=== PATIENT | male | born 1965 | race Caucasian/White ===

== ENCOUNTER 2021-01-08 17:22 | Inpatient (IN) ==
[2021-01-08] MEDS ORDERED: Pantoprazole 40 MG VIAL IVP ONE (17:29)
[2021-01-08 18:06] LABS: Basophils # 0.1 K/mcL (0.0-0.2); Basophils % 0.9 %; Eosinophils # 0.2 K/mcL (0.0-0.6); Eosinophils % 1.5 %; Hematocrit 21.1 % (37.5-50.1); Hemoglobin 7.1 g/dL (12.9-16.9); Immature Granulocytes % 0.4 % (0-4); Lymphocytes # 1.7 K/mcL (0.6-4.6); Lymphocytes % 16.9 %; Mean Corpuscular HGB Conc 33.6 g/dL (31.6-35.5); Mean Corpuscular Hemoglobin 34.6 pg (28.0-33.3); Mean Corpuscular Volume 102.9 fL (83.0-100.0); Monocytes # 0.8 K/mcL (0.0-1.3); Monocytes % 7.9 %; Neutrophils # 7.2 K/mcL (1.6-8.9); Platelet Count 162 K/mcL (140-400); Red Blood Count 2.05 M/mcL (4.19-5.50); Red Cell Distribution Width 15.1 % (11.5-14.5); Segmented Neutrophils % 72.4 %
[2021-01-08 18:15] LABS: Alanine Aminotransferase 16 Units/L (7-52); Albumin 2.5 g/dL (3.5-5.7); Albumin/Globulin Ratio 0.6 (1.1-2.2); Alkaline Phosphatase 156 Units/L (34-104); Aspartate Amino Transferase 79 Units/L (13-39); BUN/Creatinine Ratio 15 (6-26); Bilirubin,Total 2.9 mg/dL (0.3-1.0); Blood Urea Nitrogen 30 mg/dL (6-20); Calcium 8.3 mg/dL (8.6-10.3); Carbon Dioxide 19 mEq/L (23-29); Chloride 97 mEq/L (98-107); Glucose 157 mg/dL (70-105); Lipase 91 Units/L (11-82); Osmolality,Calculated 269 (280-300); Potassium 4.5 mEq/L (3.5-5.1); Sodium 125 mEq/L (136-145); Total Protein 6.5 g/dL (6.4-8.9); Troponin I < 0.03 ng/mL (< 0.04); eGFR For African Americans 44 (> 60); eGFR For Non-African Americans 36 (> 60)
[2021-01-08 18:17] LABS: Activated Partial Thrombo Time 31.3 Seconds (26.0-36.0); INR 1.4; Prothrombin Time 16.1 Seconds (9.4-12.1)
[2021-01-08 21:31] LABS: Ethanol 49 mg/dL (Less than 10)
[2021-01-08] MEDS ORDERED: Naloxone 0.4 MG/ML INJ IVP PRN (22:32)
[2021-01-08] MEDS ORDERED: Ondansetron 4 MG/2 ML VIAL IVP PRN ×2 (22:38→23:29)
[2021-01-08] MEDS ORDERED: *HR* LORazepam 0.5 MG TABLET PO PRN (23:15)
[2021-01-08] MEDS ORDERED: *HR* LORazepam 2 MG/ML VIAL IVP PRN ×3 (23:24)
[2021-01-08] MEDS ORDERED: 0.9 % Sodium Chloride 250 ML ONE (23:26)
[2021-01-08] MEDS ORDERED: tiZANidine 4 MG TABLET PO ONE (23:48)
[2021-01-09] MEDS: cefTRIAXone 1,000 MG in Water for inj. (sterile) 10 ML IVP SCH ×2 (00:12→22:33)
[2021-01-09] MEDS: Thiamine (B-1) 200 MG in 0.9 % Sodium Chloride 50 ML IVPB SCH ×2 (00:48→14:13)
[2021-01-09 01:36] LABS: Sodium, Urine 51.2 mEq/L
[2021-01-09 01:42] LABS: Amphetamine Screen,Urine Negative ng/mL (Cutoff=1000); Barbiturate Screen,Urine Negative ng/mL (Cutoff=200); Benzodiazepines Screen,Urine Negative ng/mL (Cutoff=200); Cannabinoid Screen,Urine Positive ng/mL (Cutoff = 50); Cocaine Screen,Urine Negative ng/mL (Cutoff= 300); Opiate Screen,Urine Negative ng/mL (Cutoff=300); Phencyclidine Screen,Urine Negative ng/mL (Cutoff=25)
[2021-01-09] MEDS: Pantoprazole 40 MG in 0.9 % Sodium Chloride Mini Bag 100 ML IVC SCH ×5 (01:56→20:38)
[2021-01-09 02:07] LABS: Bilirubin,Urine Negative (Negative); Blood,Urine Negative (Negative); Clarity,Urine Clear (Clear); Color,Urine Yellow (Yellow); Glucose,Urine (UA) 70 mg/dL (Normal); Ketones,Urine Negative (Negative); Leukocyte Esterase,Urine Negative (Negative); Nitrite,Urine Negative (Negative); PH,Urine 6.5 pH Units (5.0-8.0); Protein,Urine Trace mg/dL (Neg-Trace); RBC,Urine 0-3 per hpf (0-3); Specific Gravity,Urine 1.014 (1.010-1.025); Urobilinogen,Urine Normal (Normal); WBC,Urine 0-3 per hpf (0-3)
[2021-01-09] MEDS ORDERED: *HR* Promethazine 25 MG/ML VIAL IM PRN (02:13)
[2021-01-09] MEDS: Albumin 25% 25gram/100mL 25 GM/100 ML IV.SOLN IVC SCH ×2 (03:35→05:18)
[2021-01-09 06:15] LABS: Total Protein,Peritoneal Fluid 2.7 g/dL
[2021-01-09 06:37] LABS: Appearance of Peritoneal Fl HAZY (Clear)
[2021-01-09 06:38] LABS: RBC,Peritoneal Fluid < 2000 RBC/mcL
[2021-01-09] MEDS ORDERED: 0.9 % Sodium Chloride 500 ML IVC ONE (06:44)
[2021-01-09] MEDS ORDERED: Albumin 25% 25gram/100mL 25 GM/100 ML IV.SOLN IVPB ONE (06:44)
[2021-01-09] MEDS ORDERED: 0.9 % Sodium Chloride 500 ML ONE (06:48)
[2021-01-09 07:32] LABS: Basophils,Peritoneal Fluid 0 %; Eosinophils,Peritoneal Fluid 0 %
[2021-01-09 07:38] LABS: INR 1.5; Prothrombin Time 17.1 Seconds (9.4-12.1)
[2021-01-09] MEDS: Albumin 25% 25gram/100mL 25 GM/100 ML IV.SOLN IVPB SCH ×4 (07:41→13:03)
[2021-01-09 07:45] LABS: Albumin 2.7 g/dL (3.5-5.7); Albumin/Globulin Ratio 0.8 (1.1-2.2); Bilirubin,Total 2.9 mg/dL (0.3-1.0); Calcium 8.3 mg/dL (8.6-10.3); Globulin 3.3 g/dL (2.4-3.5); Potassium 4.4 mEq/L (3.5-5.1)
[2021-01-09 07:47] LABS: Bilirubin,Direct 1.3 mg/dL (0.0-0.2); Bilirubin,Indirect 1.6 mg/dL (0.0-1.0); Bilirubin,Total 2.9 mg/dL (0.3-1.0)
[2021-01-09] MEDS: Octreotide 400 MCG in 0.9 % Sodium Chloride 100 ML IVC SCH ×3 (07:50→22:33)
[2021-01-09 09:10] LABS: Basophils % 0.6 %; Eosinophils % 0.4 %; Hematocrit 17.9 % (37.5-50.1); Immature Granulocytes % 0.6 % (0-4); Immature Platelets 6.3 % (1.1-6.1); Lymphocytes # 1.3 K/mcL (0.6-4.6); Lymphocytes % 19.6 %; Mean Corpuscular HGB Conc 33.5 g/dL (31.6-35.5); Mean Corpuscular Hemoglobin 34.1 pg (28.0-33.3); Mean Corpuscular Volume 101.7 fL (83.0-100.0); Mean Platelet Volume 11.3 fL (9.4-12.4); Monocytes # 0.9 K/mcL (0.0-1.3); Monocytes % 13.3 %; Red Blood Count 1.76 M/mcL (4.19-5.50); Red Cell Distribution Width 16.1 % (11.5-14.5); Segmented Neutrophils % 65.5 %; White Blood Count 6.8 K/mcL (4.3-11.1)
[2021-01-09 09:45] LABS: Neutrophils # 4.5 K/mcL (1.6-8.9); Platelet Count 85 K/mcL (140-400)
[2021-01-09] MEDS ORDERED: Metoclopramide 10 MG/2 ML VIAL IVP ONE (11:22)
[2021-01-09] MEDS ORDERED: 0.9 % Sodium Chloride 250 ML ONE (11:23)
[2021-01-09] MEDS ORDERED: *HR* Propofol 200 MG/20 ML VIAL IVP ONE ×2 (11:39→12:20)
[2021-01-09] MEDS ORDERED: Lidocaine -MPF 2% 2 ML VIAL ONE (11:40)
[2021-01-09] MEDS ORDERED: EPINEPHrine 1 MG/ML VIAL IM ONE (12:24)
[2021-01-09] MEDS ORDERED: *HR* EPINEPHrine 1 MG/10 ML SYRINGE ONE (12:54)
[2021-01-09 14:57] LABS: Hematocrit 21.4 % (37.5-50.1); Hemoglobin 7.3 g/dL (12.9-16.9)
[2021-01-09] MEDS: Folic Acid 1 MG TABLET PO SCH (15:19)
[2021-01-09] MEDS: Vitamin B Complex/Vit C/Vit E 1 EACH TABLET PO SCH (15:19)
[2021-01-09] MEDS ORDERED: SODIUM CHLORIDE/NAHCO3/KCL/PEG 4,000 ML SOLN.RECON PO ONE (17:00)
[2021-01-09 17:05] LABS: Hematocrit 22.1 % (37.5-50.1); Hemoglobin 7.7 g/dL (12.9-16.9)
[2021-01-09] MEDS ORDERED: 0.9 % Sodium Chloride 1,000 ML IVC SCH (18:30)
[2021-01-09 21:25] LABS: Hematocrit 21.6 % (37.5-50.1); Hemoglobin 7.4 g/dL (12.9-16.9)
[2021-01-10 01:51] LABS: Hemoglobin 7.3 g/dL (12.9-16.9)
[2021-01-10 01:53] LABS: Hematocrit 20.9 % (37.5-50.1)
[2021-01-10] MEDS: Pantoprazole 40 MG in 0.9 % Sodium Chloride Mini Bag 100 ML IVC SCH ×2 (01:54→06:00)
[2021-01-10 05:52] LABS: Hemoglobin 7.5 g/dL (12.9-16.9)
[2021-01-10 05:53] LABS: Hematocrit 21.8 % (37.5-50.1); Immature Platelets 7.3 % (1.1-6.1); Mean Corpuscular HGB Conc 34.4 g/dL (31.6-35.5); Mean Platelet Volume 11.7 fL (9.4-12.4); Red Blood Count 2.27 M/mcL (4.19-5.50); Red Cell Distribution Width 16.9 % (11.5-14.5); White Blood Count 8.7 K/mcL (4.3-11.1)
[2021-01-10 05:58] LABS: Calcium 8.4 mg/dL (8.6-10.3); Potassium 4.8 mEq/L (3.5-5.1)
[2021-01-10] MEDS: Octreotide 400 MCG in 0.9 % Sodium Chloride 100 ML IVC SCH ×3 (05:59→16:34)
[2021-01-10] MEDS: Vitamin B Complex/Vit C/Vit E 1 EACH TABLET PO SCH (07:40)
[2021-01-10] MEDS: Folic Acid 1 MG TABLET PO SCH (07:40)
[2021-01-10] MEDS: Pantoprazole 40 MG VIAL IVP SCH ×2 (10:16→16:35)
[2021-01-10] MEDS: Thiamine (B-1) 200 MG in 0.9 % Sodium Chloride 50 ML IVPB SCH (10:17)
[2021-01-10] MEDS ORDERED: *HR* LORazepam 1 MG TABLET PO PRN (12:01)
[2021-01-10 12:52] LABS: Hematocrit 21.4 % (37.5-50.1); Hemoglobin 7.5 g/dL (12.9-16.9)
[2021-01-10 14:27] LABS: Hemoglobin 7.2 g/dL (12.9-16.9)
[2021-01-10 14:29] LABS: Basophils # 0.1 K/mcL (0.0-0.2); Basophils % 0.7 %; Eosinophils # 0.3 K/mcL (0.0-0.6); Eosinophils % 3.1 %; Hematocrit 20.6 % (37.5-50.1); Immature Granulocytes % 0.3 % (0-4); Immature Platelets 5.9 % (1.1-6.1); Lymphocytes # 1.6 K/mcL (0.6-4.6); Lymphocytes % 17.1 %; Mean Corpuscular Volume 97.2 fL (83.0-100.0); Mean Platelet Volume 11.3 fL (9.4-12.4); Monocytes # 0.9 K/mcL (0.0-1.3); Monocytes % 9.8 %; Neutrophils # 6.6 K/mcL (1.6-8.9); Platelet Count 107 K/mcL (140-400); Red Blood Count 2.12 M/mcL (4.19-5.50); Red Cell Distribution Width 17.3 % (11.5-14.5); White Blood Count 9.6 K/mcL (4.3-11.1)
[2021-01-10] MEDS ORDERED: *HR* Succinylcholine 200 MG/10 ML VIAL IVP ONE (14:48)
[2021-01-10] MEDS ORDERED: Lidocaine -MPF 2% 5 ML VIAL ONE (14:48)
[2021-01-10] MEDS: *HR* Phytonadione 5 MG TABLET PO SCH (17:54)
[2021-01-10] MEDS: cefTRIAXone 1,000 MG in Water for inj. (sterile) 10 ML IVP SCH (23:36)
[2021-01-11] MEDS: Octreotide 400 MCG in 0.9 % Sodium Chloride 100 ML IVC SCH ×3 (01:15→21:15)
[2021-01-11 02:25] LABS: Eosinophils % 3.4 %; Red Blood Count 1.74 M/mcL (4.19-5.50)
[2021-01-11 02:27] LABS: Basophils # 0.1 K/mcL (0.0-0.2); Basophils % 0.6 %; Eosinophils # 0.3 K/mcL (0.0-0.6); Hematocrit 17.1 % (37.5-50.1); Immature Granulocytes % 0.2 % (0-4); Immature Platelets 5.5 % (1.1-6.1); Lymphocytes # 1.9 K/mcL (0.6-4.6); Lymphocytes % 22.1 %; Mean Corpuscular HGB Conc 34.5 g/dL (31.6-35.5); Mean Corpuscular Hemoglobin 33.9 pg (28.0-33.3); Mean Corpuscular Volume 98.3 fL (83.0-100.0); Mean Platelet Volume 10.7 fL (9.4-12.4); Monocytes % 10.8 %; Neutrophils # 5.5 K/mcL (1.6-8.9); Red Cell Distribution Width 17.2 % (11.5-14.5); Segmented Neutrophils % 62.9 %; White Blood Count 8.8 K/mcL (4.3-11.1)
[2021-01-11 02:28] LABS: Platelet Count 96 K/mcL (140-400)
[2021-01-11 02:30] LABS: Hemoglobin 5.9 g/dL (12.9-16.9)
[2021-01-11] MEDS ORDERED: 0.9 % Sodium Chloride 250 ML ONE ×2 (02:38→07:51)
[2021-01-11 02:42] LABS: BUN/Creatinine Ratio 15 (6-26); Blood Urea Nitrogen 22 mg/dL (6-20); Calcium 7.9 mg/dL (8.6-10.3); Carbon Dioxide 21 mEq/L (23-29); Chloride 104 mEq/L (98-107); Glucose 116 mg/dL (70-105); Magnesium 1.2 mg/dL (1.6-2.6); Osmolality,Calculated 278 (280-300); Phosphorous 2.2 mg/dL (2.7-4.5); Potassium 3.9 mEq/L (3.5-5.1); Sodium 132 mEq/L (136-145); eGFR For African Americans > 60 (> 60); eGFR For Non-African Americans 51 (> 60)
[2021-01-11] MEDS: Pantoprazole 40 MG VIAL IVP SCH ×2 (06:43→18:25)
[2021-01-11] MEDS: Vitamin B Complex/Vit C/Vit E 1 EACH TABLET PO SCH (08:10)
[2021-01-11] MEDS: Folic Acid 1 MG TABLET PO SCH (08:10)
[2021-01-11] MEDS: *HR* Phytonadione 5 MG TABLET PO SCH (08:11)
[2021-01-11] MEDS ORDERED: *HR* LORazepam 2 MG/ML VIAL ONE (08:31)
[2021-01-11] MEDS ORDERED: *HR* LORazepam 2 MG/ML VIAL IVP ONE (08:39)
[2021-01-11] MEDS ORDERED: levETIRAcetam 1,000 MG in 0.9 % Sodium Chloride 100 ML IVPB ONE (08:40)
[2021-01-11] MEDS: Albumin 25% 25gram/100mL 25 GM/100 ML IV.SOLN IVC SCH ×4 (09:10→14:16)
[2021-01-11] MEDS ORDERED: Lidocaine -MPF 1% 5 ML AMPUL INFILT ONE (09:26)
[2021-01-11] MEDS ORDERED: 0.9 % Sodium Chloride 1,000 ML IVC ONE (09:44)
[2021-01-11] MEDS ORDERED: 0.9 % Sodium Chloride 500 ML ONE ×2 (09:47→20:37)
[2021-01-11] MEDS ORDERED: 0.9 % Sodium Chloride 500 ML IVC STA (09:50)
[2021-01-11] MEDS: Norepinephrine 4 MG/254 ML IV.SOLN IVC SCH (10:30)
[2021-01-11 11:41] LABS: ABG Base Excess -4 mEq/L (-2 to 3); ABG HCO3 20 mEq/L (21-27); ABG Oxygen Saturation 94 % (95-98); ABG PCO2 30 mmHg (35-45); ABG PH 7.43 pH Units (7.32-7.45); ABG PO2 66 mmHg (85-104); ABG TCO2 21 mEq/L (20-26)
[2021-01-11] MEDS: *HR* LORazepam 2 MG/ML VIAL IVP SCH ×2 (14:19→22:43)
[2021-01-11 17:07] LABS: Hematocrit 20.2 % (37.5-50.1); Hemoglobin 6.9 g/dL (12.9-16.9)
[2021-01-11 17:14] LABS: INR 1.8
[2021-01-11 17:17] LABS: Activated Partial Thrombo Time 34.9 Seconds (26.0-36.0)
[2021-01-11] MEDS: cefTRIAXone 1,000 MG in Water for inj. (sterile) 10 ML IVP SCH (22:43)
[2021-01-12 03:57] LABS: Basophils % 0.7 %; Hemoglobin 7.6 g/dL (12.9-16.9); Mean Platelet Volume 10.9 fL (9.4-12.4)
[2021-01-12 03:59] LABS: Basophils # 0.1 K/mcL (0.0-0.2); Eosinophils # 0.2 K/mcL (0.0-0.6); Eosinophils % 2.9 %; Hematocrit 22.4 % (37.5-50.1); Immature Granulocytes % 0.6 % (0-4); Immature Platelets 5.2 % (1.1-6.1); Lymphocytes # 1.5 K/mcL (0.6-4.6); Lymphocytes % 21.3 %; Mean Corpuscular HGB Conc 33.9 g/dL (31.6-35.5); Mean Corpuscular Hemoglobin 31.4 pg (28.0-33.3); Mean Corpuscular Volume 92.6 fL (83.0-100.0); Monocytes # 0.7 K/mcL (0.0-1.3); Monocytes % 10.3 %; Neutrophils # 4.5 K/mcL (1.6-8.9); Red Blood Count 2.42 M/mcL (4.19-5.50); Red Cell Distribution Width 18.5 % (11.5-14.5); Segmented Neutrophils % 64.2 %
[2021-01-12 04:00] LABS: Platelet Count 72 K/mcL (140-400)
[2021-01-12 04:15] LABS: BUN/Creatinine Ratio 14 (6-26); Blood Urea Nitrogen 15 mg/dL (6-20); Calcium 8.1 mg/dL (8.6-10.3); Carbon Dioxide 20 mEq/L (23-29); Chloride 107 mEq/L (98-107); Glucose 109 mg/dL (70-105); Magnesium 1.8 mg/dL (1.6-2.6); Osmolality,Calculated 281 (280-300); Phosphorous 2.5 mg/dL (2.7-4.5); Potassium 3.5 mEq/L (3.5-5.1); Sodium 135 mEq/L (136-145); eGFR For African Americans > 60 (> 60); eGFR For Non-African Americans > 60 (> 60)
[2021-01-12] MEDS ORDERED: Potassium Chloride 40 MEQ/200 ML BAG IVPB PRN ×2 (04:22→22:19)
[2021-01-12] MEDS ORDERED: Calcium Gluconate 1gm/50mL 1 GM/50 ML BAG IVPB PRN ×2 (04:22→22:19)
[2021-01-12] MEDS ORDERED: Potassium Phosphate 44 MEQ in 0.9 % Sodium Chloride 250 ML IVPB PRN ×2 (04:27→22:19)
[2021-01-12] MEDS: Pantoprazole 40 MG VIAL IVP SCH ×2 (05:06→17:54)
[2021-01-12] MEDS: Octreotide 400 MCG in 0.9 % Sodium Chloride 100 ML IVC SCH ×3 (05:07→23:13)
[2021-01-12] MEDS: *HR* LORazepam 2 MG/ML VIAL IVP SCH ×3 (07:47→23:12)
[2021-01-12] MEDS: *HR* Phytonadione 5 MG TABLET PO SCH (07:47)
[2021-01-12] MEDS: Folic Acid 1 MG TABLET PO SCH (07:47)
[2021-01-12] MEDS: Vitamin B Complex/Vit C/Vit E 1 EACH TABLET PO SCH (07:47)
[2021-01-12] MEDS ORDERED: *HR* Propofol 200 MG/20 ML VIAL IVP ONE (12:55)
[2021-01-12 16:12] LABS: Fluid Source for Albumin ASCITES
[2021-01-12] MEDS ORDERED: Calcium Gluconate 1gm/50mL 1 GM/50 ML BAG IVPB ONE (16:22)
[2021-01-12 16:46] LABS: VBG Ionized Calcium 1.16 mmol/L (1.15-1.35)
[2021-01-12] MEDS: Norepinephrine 4 MG/254 ML IV.SOLN IVC SCH (20:06)
[2021-01-12] MEDS ORDERED: Psyllium 1 PACKET POWD.PACK PO SCH (21:00)
[2021-01-12] MEDS ORDERED: *HR* LORazepam 2 MG/ML VIAL IVP PRN ×3 (22:19)
[2021-01-12] MEDS ORDERED: Naloxone 0.4 MG/ML INJ IVP PRN (22:19)
[2021-01-12] MEDS ORDERED: *HR* Promethazine 25 MG/ML VIAL IM PRN (22:19)
[2021-01-12] MEDS: cefTRIAXone 1,000 MG in Water for inj. (sterile) 10 ML IVP SCH (23:13)
[2021-01-13] MEDS: Pantoprazole 40 MG VIAL IVP SCH ×2 (05:19→18:46)
[2021-01-13 06:52] LABS: BUN/Creatinine Ratio 11 (6-26); Blood Urea Nitrogen 10 mg/dL (6-20); Calcium 8.2 mg/dL (8.6-10.3); Carbon Dioxide 21 mEq/L (23-29); Chloride 108 mEq/L (98-107); Glucose 104 mg/dL (70-105); Magnesium 1.7 mg/dL (1.6-2.6); Osmolality,Calculated 279 (280-300); Phosphorous 2.7 mg/dL (2.7-4.5); Potassium 4.2 mEq/L (3.5-5.1); Sodium 135 mEq/L (136-145); eGFR For African Americans > 60 (> 60); eGFR For Non-African Americans > 60 (> 60)
[2021-01-13] MEDS: Folic Acid 1 MG TABLET PO SCH (07:36)
[2021-01-13] MEDS: Vitamin B Complex/Vit C/Vit E 1 EACH TABLET PO SCH (07:36)
[2021-01-13] MEDS: *HR* LORazepam 2 MG/ML VIAL IVP SCH ×3 (07:37→22:59)
[2021-01-13] MEDS: Psyllium 1 PACKET POWD.PACK PO SCH ×3 (07:38→23:00)
[2021-01-13 09:09] LABS: Basophils # 0.1 K/mcL (0.0-0.2); Basophils % 0.7 %; Eosinophils # 0.3 K/mcL (0.0-0.6); Eosinophils % 4.2 %; Hematocrit 24.9 % (37.5-50.1); Hemoglobin 8.2 g/dL (12.9-16.9); Immature Granulocytes % 0.5 % (0-4); Immature Platelets 5.2 % (1.1-6.1); Lymphocytes # 1.5 K/mcL (0.6-4.6); Lymphocytes % 19.9 %; Mean Corpuscular HGB Conc 32.9 g/dL (31.6-35.5); Mean Corpuscular Hemoglobin 31.7 pg (28.0-33.3); Mean Corpuscular Volume 96.1 fL (83.0-100.0); Mean Platelet Volume 10.8 fL (9.4-12.4); Monocytes # 0.8 K/mcL (0.0-1.3); Monocytes % 10.8 %; Neutrophils # 4.8 K/mcL (1.6-8.9); Platelet Count 85 K/mcL (140-400); Red Blood Count 2.59 M/mcL (4.19-5.50); Segmented Neutrophils % 63.9 %; White Blood Count 7.5 K/mcL (4.3-11.1)
[2021-01-13] MEDS: Octreotide 400 MCG in 0.9 % Sodium Chloride 100 ML IVC SCH ×5 (09:49→19:45)
[2021-01-13] MEDS ORDERED: *HR* LORazepam 2 MG/ML VIAL IVP SCH (12:00)
[2021-01-13 16:35] LABS: Total Protein,Peritoneal Fluid 2.3 g/dL
[2021-01-13 16:57] LABS: RBC,Peritoneal Fluid < 2000 RBC/mcL
[2021-01-13 18:00] LABS: Hematocrit 25.4 % (37.5-50.1); Hemoglobin 8.5 g/dL (12.9-16.9)
[2021-01-13 18:20] LABS: Appearance of Peritoneal Fl CLEAR (Clear)
[2021-01-13 18:22] LABS: Basophils,Peritoneal Fluid 0 %; Eosinophils,Peritoneal Fluid 0 %
[2021-01-13] MEDS: cefTRIAXone 1,000 MG in Water for inj. (sterile) 10 ML IVP SCH (23:00)
[2021-01-14] MEDS: Ondansetron 4 MG/2 ML VIAL IVP PRN ×2 (00:38→12:55)
[2021-01-14] MEDS: Pantoprazole 40 MG VIAL IVP SCH ×2 (05:10→16:42)
[2021-01-14 06:00] LABS: Basophils # 0.1 K/mcL (0.0-0.2); Basophils % 0.7 %; Eosinophils # 0.3 K/mcL (0.0-0.6); Hematocrit 30.1 % (37.5-50.1); Hemoglobin 9.6 g/dL (12.9-16.9); Immature Granulocytes % 0.4 % (0-4); Lymphocytes # 1.1 K/mcL (0.6-4.6); Mean Corpuscular HGB Conc 31.9 g/dL (31.6-35.5); Mean Corpuscular Hemoglobin 31.1 pg (28.0-33.3); Mean Corpuscular Volume 97.4 fL (83.0-100.0); Mean Platelet Volume 10.2 fL (9.4-12.4); Monocytes # 0.8 K/mcL (0.0-1.3); Monocytes % 8.5 %; Neutrophils # 7.1 K/mcL (1.6-8.9); Platelet Count 106 K/mcL (140-400); Red Blood Count 3.09 M/mcL (4.19-5.50); Segmented Neutrophils % 75.4 %; White Blood Count 9.4 K/mcL (4.3-11.1)
[2021-01-14 06:25] LABS: BUN/Creatinine Ratio 8 (6-26); Blood Urea Nitrogen 7 mg/dL (6-20); Calcium 8.5 mg/dL (8.6-10.3); Carbon Dioxide 19 mEq/L (23-29); Chloride 107 mEq/L (98-107); Glucose 122 mg/dL (70-105); Magnesium 1.3 mg/dL (1.6-2.6); Osmolality,Calculated 275 (280-300); Phosphorous 2.3 mg/dL (2.7-4.5); Potassium 4.5 mEq/L (3.5-5.1); Sodium 133 mEq/L (136-145); eGFR For African Americans > 60 (> 60); eGFR For Non-African Americans > 60 (> 60)
[2021-01-14] MEDS: Vitamin B Complex/Vit C/Vit E 1 EACH TABLET PO SCH (08:43)
[2021-01-14] MEDS: Folic Acid 1 MG TABLET PO SCH (08:43)
[2021-01-14] MEDS: *HR* LORazepam 2 MG/ML VIAL IVP SCH ×2 (08:43→21:31)
[2021-01-14] MEDS: Psyllium 1 PACKET POWD.PACK PO SCH ×3 (08:44→21:31)
[2021-01-14] MEDS ORDERED: levoFLOXacin 750 MG TABLET PO ONE (11:26)
[2021-01-14 17:52] LABS: Adenovirus Not Detected (Not Detect); Bordetella Pertussis Not Detected (Not Detect); Chlamydophila pneumoniae Not Detected (Not Detect); Coronavirus 229E Not Detected (Not Detect); Coronavirus HKU1 Not Detected (Not Detect); Coronavirus NL63 Not Detected (Not Detect); Coronavirus OC43 Not Detected (Not Detect); Human Metapneumovirus Not Detected (Not Detect); Human Rhinovirus/Enterovirus Not Detected (Not Detect); Influenza A Subtype 2009 H1 Not Detected (Not Detect); Influenza B Not Detected (Not Detect); Mycoplasma pneumoniae Not Detected (Not Detect); Parainfluenza Virus 1 Not Detected (Not Detect); Parainfluenza Virus 2 Not Detected (Not Detect); Parainfluenza Virus 3 Not Detected (Not Detect); Parainfluenza Virus 4 Not Detected (Not Detect); Respiratory Syncytial Virus Not Detected (Not Detect); SARS-CoV-2 Not Detected (Not Detect)
[2021-01-15] MEDS: Pantoprazole 40 MG VIAL IVP SCH ×2 (05:38→17:17)
[2021-01-15 06:07] LABS: Basophils % 0.5 %; Mean Corpuscular Volume 97.4 fL (83.0-100.0)
[2021-01-15 06:09] LABS: Basophils # 0.1 K/mcL (0.0-0.2); Eosinophils # 0.1 K/mcL (0.0-0.6); Eosinophils % 1.4 %; Hematocrit 26.3 % (37.5-50.1); Hemoglobin 8.7 g/dL (12.9-16.9); Immature Granulocytes % 0.4 % (0-4); Immature Platelets 3.6 % (1.1-6.1); Lymphocytes # 1.2 K/mcL (0.6-4.6); Lymphocytes % 12.8 %; Mean Corpuscular HGB Conc 33.1 g/dL (31.6-35.5); Mean Corpuscular Hemoglobin 32.2 pg (28.0-33.3); Monocytes % 10.2 %; Platelet Count 109 K/mcL (140-400); Red Cell Distribution Width 18.8 % (11.5-14.5); Segmented Neutrophils % 74.7 %; White Blood Count 9.3 K/mcL (4.3-11.1)
[2021-01-15 06:37] LABS: Anisocytosis 1+ (Not Present); Platelet Estimate Decreased (Normal)
[2021-01-15 06:59] LABS: BUN/Creatinine Ratio 10 (6-26); Blood Urea Nitrogen 10 mg/dL (6-20); Calcium 7.9 mg/dL (8.6-10.3); Carbon Dioxide 18 mEq/L (23-29); Chloride 105 mEq/L (98-107); Glucose 111 mg/dL (70-105); Magnesium 1.3 mg/dL (1.6-2.6); Osmolality,Calculated 274 (280-300); Phosphorous 2.3 mg/dL (2.7-4.5); Potassium 4.1 mEq/L (3.5-5.1); Sodium 132 mEq/L (136-145); eGFR For African Americans > 60 (> 60); eGFR For Non-African Americans > 60 (> 60)
[2021-01-15] MEDS ORDERED: levoFLOXacin 750 MG TABLET PO SCH (09:00)
[2021-01-15] MEDS: Psyllium 1 PACKET POWD.PACK PO SCH ×3 (09:31→14:46)
[2021-01-15] MEDS: Vitamin B Complex/Vit C/Vit E 1 EACH TABLET PO SCH (09:31)
[2021-01-15] MEDS: Folic Acid 1 MG TABLET PO SCH (09:31)
[2021-01-15] MEDS: *HR* LORazepam 2 MG/ML VIAL IVP SCH ×2 (09:32→21:05)
[2021-01-15] MEDS: Ondansetron 4 MG/2 ML VIAL IVP PRN (09:40)
[2021-01-15] MEDS: Piperacillin/Tazobactam 3.375 GM in 0.9 % Sodium Chloride Mini Bag 100 ML IVPB SCH ×2 (09:58→17:16)
[2021-01-15 10:21] LABS: Hematocrit 27.6 % (37.5-50.1); Hemoglobin 8.8 g/dL (12.9-16.9)
[2021-01-15 10:41] LABS: Albumin 3.1 g/dL (3.5-5.7); Albumin/Globulin Ratio 1.1 (1.1-2.2); Bilirubin,Direct 1.4 mg/dL (0.0-0.2); Bilirubin,Indirect 1.8 mg/dL (0.0-1.0); Bilirubin,Total 3.2 mg/dL (0.3-1.0); Globulin 2.8 g/dL (2.4-3.5); Total Protein 5.9 g/dL (6.4-8.9)
[2021-01-15 23:41] LABS: Fluid Source for Albumin PERITONEAL FL
[2021-01-16] MEDS: Psyllium 1 PACKET POWD.PACK PO SCH ×2 (00:26→08:32)
[2021-01-16] MEDS: Piperacillin/Tazobactam 3.375 GM in 0.9 % Sodium Chloride Mini Bag 100 ML IVPB SCH ×2 (00:28→08:30)
[2021-01-16] MEDS: Pantoprazole 40 MG VIAL IVP SCH (05:10)
[2021-01-16 05:51] LABS: Hemoglobin 8.4 g/dL (12.9-16.9); Immature Granulocytes % 0.3 % (0-4); Lymphocytes % 14.4 %
[2021-01-16 05:53] LABS: Basophils # 0.1 K/mcL (0.0-0.2); Basophils % 0.9 %; Eosinophils # 0.4 K/mcL (0.0-0.6); Eosinophils % 4.5 %; Hematocrit 25.7 % (37.5-50.1); Immature Platelets 4.3 % (1.1-6.1); Lymphocytes # 1.3 K/mcL (0.6-4.6); Mean Corpuscular HGB Conc 32.7 g/dL (31.6-35.5); Mean Corpuscular Hemoglobin 31.5 pg (28.0-33.3); Mean Corpuscular Volume 96.3 fL (83.0-100.0); Mean Platelet Volume 10.4 fL (9.4-12.4); Monocytes # 1.1 K/mcL (0.0-1.3); Monocytes % 11.5 %; Neutrophils # 6.3 K/mcL (1.6-8.9); Platelet Count 106 K/mcL (140-400); Red Blood Count 2.67 M/mcL (4.19-5.50); Segmented Neutrophils % 68.4 %; White Blood Count 9.2 K/mcL (4.3-11.1)
[2021-01-16 06:11] LABS: BUN/Creatinine Ratio 15 (6-26); Blood Urea Nitrogen 17 mg/dL (6-20); Calcium 7.9 mg/dL (8.6-10.3); Carbon Dioxide 21 mEq/L (23-29); Chloride 107 mEq/L (98-107); Glucose 99 mg/dL (70-105); Magnesium 1.3 mg/dL (1.6-2.6); Osmolality,Calculated 280 (280-300); Phosphorous 3.1 mg/dL (2.7-4.5); Potassium 3.9 mEq/L (3.5-5.1); Sodium 134 mEq/L (136-145); eGFR For African Americans > 60 (> 60); eGFR For Non-African Americans > 60 (> 60)
[2021-01-16 08:12] VITALS: BP 119/68; PULSE 92; TEMP 98.2; O2SAT 97
[2021-01-16] MEDS: *HR* LORazepam 2 MG/ML VIAL IVP SCH (08:31)
[2021-01-16] MEDS: Vitamin B Complex/Vit C/Vit E 1 EACH TABLET PO SCH (08:32)
[2021-01-16] MEDS: Folic Acid 1 MG TABLET PO SCH (08:32)
[2021-01-16 08:57] LABS: Alanine Aminotransferase 13 Units/L (7-52); Albumin 2.8 g/dL (3.5-5.7); Alkaline Phosphatase 94 Units/L (34-104); Aspartate Amino Transferase 36 Units/L (13-39); Bilirubin,Direct 1.5 mg/dL (0.0-0.2); Bilirubin,Indirect 1.3 mg/dL (0.0-1.0); Bilirubin,Total 2.8 mg/dL (0.3-1.0); Globulin 2.7 g/dL (2.4-3.5); Total Protein 5.5 g/dL (6.4-8.9)
== END 2021-01-16 10:25 | disposition home or self-care (01) | DRG 347 ==
LOC: 3NENU 17:22 → EMEROOARM 17:22 → OBSVTOIN 21:06 → SUATTDRO 21:06 → 3NENU 22:01 → 2NNU 01-09 11:05 → ICNU 01-11 19:02 → 3NENU 01-12 22:20
PROVIDERS: ADMIT Student in an Organized Health Care Education/Training Program; ATTEND Student in an Organized Health Care Education/Training Program
PROC: [UNRECOGNIZED PROCEDURE] (2021-01-12 13:00)

== ENCOUNTER 2021-01-22 23:50 | Observation (INO) ==
[2021-01-23 01:25] LABS: BUN/Creatinine Ratio 17 (6-26); Blood Urea Nitrogen 19 mg/dL (6-20); Calcium 8.2 mg/dL (8.6-10.3); Carbon Dioxide 20 mEq/L (23-29); Chloride 103 mEq/L (98-107); Glucose 124 mg/dL (70-105); Osmolality,Calculated 276 (280-300); Potassium 4.2 mEq/L (3.5-5.1); Sodium 131 mEq/L (136-145); eGFR For African Americans > 60 (> 60); eGFR For Non-African Americans > 60 (> 60)
[2021-01-23] MEDS ORDERED: Ondansetron 4 MG/2 ML VIAL IVP ONE (02:09)
[2021-01-23] MEDS ORDERED: *HR* OxyCODONE Immed Rel 5 MG TABLET PO ONE (02:10)
[2021-01-23 02:28] LABS: Basophils # 0.1 K/mcL (0.0-0.2); Eosinophils # 0.3 K/mcL (0.0-0.6); Hematocrit 23.6 % (37.5-50.1); Hemoglobin 7.8 g/dL (12.9-16.9); Immature Granulocytes % 0.5 % (0-4); Lymphocytes # 2.1 K/mcL (0.6-4.6); Lymphocytes % 14.6 %; Mean Corpuscular HGB Conc 33.1 g/dL (31.6-35.5); Mean Corpuscular Hemoglobin 31.6 pg (28.0-33.3); Mean Corpuscular Volume 95.5 fL (83.0-100.0); Mean Platelet Volume 10.9 fL (9.4-12.4); Monocytes # 1.3 K/mcL (0.0-1.3); Monocytes % 9.1 %; Neutrophils # 10.5 K/mcL (1.6-8.9); Platelet Count 179 K/mcL (140-400); Red Blood Count 2.47 M/mcL (4.19-5.50); Red Cell Distribution Width 18.4 % (11.5-14.5); Segmented Neutrophils % 72.8 %; White Blood Count 14.4 K/mcL (4.3-11.1)
[2021-01-23 03:12] LABS: Alanine Aminotransferase 18 Units/L (7-52); Albumin/Globulin Ratio 0.8 (1.1-2.2); Alkaline Phosphatase 205 Units/L (34-104); Aspartate Amino Transferase 54 Units/L (13-39); Bilirubin,Indirect 2.3 mg/dL (0.0-1.0); Bilirubin,Total 4.3 mg/dL (0.3-1.0); Globulin 3.9 g/dL (2.4-3.5); Total Protein 6.9 g/dL (6.4-8.9)
[2021-01-23] MEDS ORDERED: Naloxone 0.4 MG/ML INJ IVP PRN (04:59)
[2021-01-23] MEDS ORDERED: Melatonin 3 MG TABLET PO PRN (04:59)
[2021-01-23 05:41] LABS: Hematocrit 24.9 % (37.5-50.1); Hemoglobin 8.2 g/dL (12.9-16.9)
[2021-01-23 05:48] LABS: INR 1.8; Prothrombin Time 20.1 Seconds (9.4-12.1)
[2021-01-23] MEDS: Folic Acid 1 MG TABLET PO SCH (09:24)
[2021-01-23] MEDS: Lactulose Oral Soln 20 GM/30 ML UDC PO SCH ×2 (09:24→21:17)
[2021-01-23] MEDS: RED YEAST RICE 600 MG PO SCH (09:24)
[2021-01-23] MEDS: Multivit/Ca/Min/Fe/FA 1 TAB TABLET PO SCH (09:24)
[2021-01-23] MEDS: *HR* LORazepam 2 MG/ML VIAL IVP PRN ×3 (09:46→18:16)
[2021-01-23 12:28] LABS: Hematocrit 23.5 % (37.5-50.1); Hemoglobin 7.6 g/dL (12.9-16.9)
[2021-01-23] MEDS ORDERED: *HR* Dextrose 50 % in Water (Syg) 50 ML SYRINGE IVP PRN (16:30)
[2021-01-23] MEDS ORDERED: Dextrose Gel 15 GM/37.5 ML TUBE PO PRN ×2 (16:30)
[2021-01-23] MEDS ORDERED: D5% in Water 1,000 ML IVC PRN (16:30)
[2021-01-23 18:21] LABS: Hematocrit 24.5 % (37.5-50.1); Hemoglobin 7.8 g/dL (12.9-16.9)
[2021-01-23] MEDS: Insulin LISPRO 300 UNITS/3 ML VIAL SUBQ SCH (18:54)
[2021-01-24] MEDS: Insulin LISPRO 300 UNITS/3 ML VIAL SUBQ SCH ×3 (00:36→14:07)
[2021-01-24] MEDS: *HR* LORazepam 2 MG/ML VIAL IVP PRN ×4 (01:05→19:39)
[2021-01-24 05:16] LABS: Basophils # 0.2 K/mcL (0.0-0.2); Basophils % 1.2 %; Eosinophils # 0.4 K/mcL (0.0-0.6); Eosinophils % 2.3 %; Hematocrit 24.9 % (37.5-50.1); Hemoglobin 7.9 g/dL (12.9-16.9); Immature Granulocytes % 0.6 % (0-4); Lymphocytes # 2.7 K/mcL (0.6-4.6); Lymphocytes % 16.3 %; Mean Corpuscular HGB Conc 31.7 g/dL (31.6-35.5); Mean Corpuscular Hemoglobin 31.2 pg (28.0-33.3); Mean Corpuscular Volume 98.4 fL (83.0-100.0); Mean Platelet Volume 10.7 fL (9.4-12.4); Monocytes # 1.1 K/mcL (0.0-1.3); Monocytes % 6.7 %; Neutrophils # 11.9 K/mcL (1.6-8.9); Platelet Count 200 K/mcL (140-400); Red Blood Count 2.53 M/mcL (4.19-5.50); Red Cell Distribution Width 18.8 % (11.5-14.5); Segmented Neutrophils % 72.9 %; White Blood Count 16.3 K/mcL (4.3-11.1)
[2021-01-24 05:34] LABS: BUN/Creatinine Ratio 18 (6-26); Blood Urea Nitrogen 22 mg/dL (6-20); Calcium 8.2 mg/dL (8.6-10.3); Carbon Dioxide 20 mEq/L (23-29); Chloride 104 mEq/L (98-107); Glucose 105 mg/dL (70-105); Magnesium 1.7 mg/dL (1.6-2.6); Osmolality,Calculated 274 (280-300); Potassium 4.6 mEq/L (3.5-5.1); Sodium 130 mEq/L (136-145); eGFR For African Americans > 60 (> 60); eGFR For Non-African Americans > 60 (> 60)
[2021-01-24] MEDS: Folic Acid 1 MG TABLET PO SCH (08:43)
[2021-01-24] MEDS: Multivit/Ca/Min/Fe/FA 1 TAB TABLET PO SCH (08:43)
[2021-01-24] MEDS: RED YEAST RICE 600 MG PO SCH (08:44)
[2021-01-24] MEDS: Lactulose Oral Soln 20 GM/30 ML UDC PO SCH ×2 (08:44→19:38)
[2021-01-24] MEDS ORDERED: *HR* Propofol 200 MG/20 ML VIAL IVP ONE (13:39)
[2021-01-24] MEDS ORDERED: EPHEDrine 50 MG/ML VIAL ONE (13:39)
[2021-01-24] MEDS ORDERED: Lidocaine -MPF 2% 5 ML VIAL ONE (13:40)
[2021-01-24] MEDS: cefTRIAXone 1,000 MG in 0.9 % Sodium Chloride Mini Bag 100 ML IVPB SCH (15:19)
[2021-01-24 16:57] LABS: RBC,Peritoneal Fluid < 2000 RBC/mcL
[2021-01-24 17:19] LABS: Appearance of Peritoneal Fl CLEAR (Clear)
[2021-01-24 18:13] LABS: Glucose,Peritoneal Fluid 110 mg/dL (No Ref Range); LDH,Peritoneal Fluid 57 Units/L (No Ref Range); Total Protein,Peritoneal Fluid < 2.0 g/dL
[2021-01-24 18:27] LABS: Basophils,Peritoneal Fluid 0 %; Eosinophils,Peritoneal Fluid 0 %
[2021-01-25 05:24] LABS: Basophils # 0.2 K/mcL (0.0-0.2); Basophils % 1.3 %; Eosinophils # 0.5 K/mcL (0.0-0.6); Eosinophils % 3.4 %; Hematocrit 23.9 % (37.5-50.1); Hemoglobin 7.9 g/dL (12.9-16.9); Immature Granulocytes % 0.6 % (0-4); Lymphocytes # 2.1 K/mcL (0.6-4.6); Lymphocytes % 14.8 %; Mean Corpuscular HGB Conc 33.1 g/dL (31.6-35.5); Mean Corpuscular Hemoglobin 31.7 pg (28.0-33.3); Mean Platelet Volume 10.7 fL (9.4-12.4); Monocytes # 1.1 K/mcL (0.0-1.3); Monocytes % 7.5 %; Neutrophils # 10.4 K/mcL (1.6-8.9); Platelet Count 183 K/mcL (140-400); Red Blood Count 2.49 M/mcL (4.19-5.50); Red Cell Distribution Width 18.6 % (11.5-14.5); Segmented Neutrophils % 72.4 %; White Blood Count 14.3 K/mcL (4.3-11.1)
[2021-01-25 05:47] LABS: BUN/Creatinine Ratio 19 (6-26); Blood Urea Nitrogen 21 mg/dL (6-20); Carbon Dioxide 23 mEq/L (23-29); Chloride 104 mEq/L (98-107); Glucose 122 mg/dL (70-105); Magnesium 1.7 mg/dL (1.6-2.6); Osmolality,Calculated 278 (280-300); Phosphorous 4.1 mg/dL (2.7-4.5); Potassium 3.9 mEq/L (3.5-5.1); Sodium 132 mEq/L (136-145); eGFR For African Americans > 60 (> 60); eGFR For Non-African Americans > 60 (> 60)
[2021-01-25] MEDS: RED YEAST RICE 600 MG PO SCH (08:52)
[2021-01-25] MEDS ORDERED: Spironolactone 12.5 MG TABLET PO SCH (09:00)
[2021-01-25] MEDS: Lactulose Oral Soln 20 GM/30 ML UDC PO SCH (09:27)
[2021-01-25] MEDS: Multivit/Ca/Min/Fe/FA 1 TAB TABLET PO SCH (09:28)
[2021-01-25] MEDS: Folic Acid 1 MG TABLET PO SCH (09:28)
[2021-01-25] MEDS: cefTRIAXone 1,000 MG in 0.9 % Sodium Chloride Mini Bag 100 ML IVPB SCH (09:28)
[2021-01-25] MEDS ORDERED: Albumin 25% 25gram/100mL 25 GM/100 ML IV.SOLN IVPB ONE (09:32)
[2021-01-25 10:39] VITALS: BP 101/67; PULSE 76; TEMP 97.3; O2SAT 97
[2021-01-26 21:45] LABS: Fluid Source for Albumin ASCITES
== END 2021-01-25 13:42 | disposition home or self-care (01) ==
LOC: EMEROOARM 23:50 → 2ANU 23:50 → SUATTDRO 01-23 04:40 → 2ANU 01-23 05:02
PROVIDERS: ADMIT Internal Medicine; ATTEND Internal Medicine

== ENCOUNTER 2021-01-29 | Inpatient (IN) ==
[2021-01-29] MEDS ORDERED: 0.9 % Sodium Chloride 1,000 ML IVC ONE ×2 (00:10→04:34)
[2021-01-29] MEDS ORDERED: Pantoprazole 40 MG VIAL IVP ONE (00:17)
[2021-01-29 01:00] LABS: Basophils # 0.1 K/mcL (0.0-0.2); Basophils % 0.5 %; Eosinophils # 0.1 K/mcL (0.0-0.6); Eosinophils % 0.5 %; Hematocrit 19.2 % (37.5-50.1); Immature Granulocytes % 0.6 % (0-4); Lymphocytes # 3.3 K/mcL (0.6-4.6); Lymphocytes % 16.2 %; Mean Corpuscular HGB Conc 31.8 g/dL (31.6-35.5); Mean Corpuscular Hemoglobin 31.3 pg (28.0-33.3); Mean Corpuscular Volume 98.5 fL (83.0-100.0); Mean Platelet Volume 10.9 fL (9.4-12.4); Monocytes # 1.3 K/mcL (0.0-1.3); Monocytes % 6.5 %; Neutrophils # 15.5 K/mcL (1.6-8.9); Platelet Count 284 K/mcL (140-400); Red Blood Count 1.95 M/mcL (4.19-5.50); Red Cell Distribution Width 19.5 % (11.5-14.5); Segmented Neutrophils % 75.7 %; White Blood Count 20.5 K/mcL (4.3-11.1)
[2021-01-29 01:04] LABS: Hemoglobin 6.1 g/dL (12.9-16.9)
[2021-01-29] MEDS ORDERED: Piperacillin/Tazobactam 3.375 GM in 0.9 % Sodium Chloride Mini Bag 100 ML IVPB ONE (01:21)
[2021-01-29 01:22] LABS: Alanine Aminotransferase 16 Units/L (7-52); Albumin 2.9 g/dL (3.5-5.7); Albumin/Globulin Ratio 0.8 (1.1-2.2); Alkaline Phosphatase 188 Units/L (34-104); Aspartate Amino Transferase 57 Units/L (13-39); BUN/Creatinine Ratio 18 (6-26); Bilirubin,Total 3.8 mg/dL (0.3-1.0); Blood Urea Nitrogen 42 mg/dL (6-20); Calcium 8.2 mg/dL (8.6-10.3); Carbon Dioxide 17 mEq/L (23-29); Chloride 101 mEq/L (98-107); Globulin 3.6 g/dL (2.4-3.5); Glucose 143 mg/dL (70-105); Lipase 85 Units/L (11-82); Osmolality,Calculated 279 (280-300); Potassium 5.4 mEq/L (3.5-5.1); Sodium 128 mEq/L (136-145); Total Protein 6.5 g/dL (6.4-8.9); Troponin I < 0.03 ng/mL (< 0.04); eGFR For African Americans 34 (> 60); eGFR For Non-African Americans 28 (> 60)
[2021-01-29 01:23] LABS: INR 1.8; Prothrombin Time 19.5 Seconds (9.4-12.1)
[2021-01-29 01:26] LABS: Activated Partial Thrombo Time 35.1 Seconds (26.0-36.0)
[2021-01-29] MEDS ORDERED: 0.9 % Sodium Chloride 250 ML ONE ×3 (01:27→13:32)
[2021-01-29] MEDS ORDERED: Isovue-370 500 ML BOTTLE IVP ONE (01:54)
[2021-01-29 02:58] LABS: Influenza A PCR Negative (Negative); Influenza B PCR Negative (Negative); Resp. Syncytial Virus PCR Negative (Negative)
[2021-01-29 02:59] LABS: SARS-CoV-2 by PCR (In House) Negative (Negative)
[2021-01-29] MEDS ORDERED: Octreotide 50 MCG/ML INJ IVP ONE (03:12)
[2021-01-29] MEDS ORDERED: Octreotide 400 MCG in 0.9 % Sodium Chloride 100 ML IVC SCH (03:15)
[2021-01-29] MEDS ORDERED: Ondansetron 4 MG/2 ML VIAL IVP PRN (03:24)
[2021-01-29] MEDS ORDERED: Naloxone 0.4 MG/ML INJ IVP PRN (03:24)
[2021-01-29] MEDS ORDERED: Acetaminophen 325 MG TABLET PO PRN (03:24)
[2021-01-29] MEDS ORDERED: Dextrose Gel 15 GM/37.5 ML TUBE PO PRN ×2 (03:31)
[2021-01-29] MEDS ORDERED: *HR* Dextrose 50 % in Water (Syg) 50 ML SYRINGE IVP PRN (03:31)
[2021-01-29] MEDS ORDERED: D5% in Water 1,000 ML IVC PRN (03:31)
[2021-01-29] MEDS ORDERED: Saliva Stimulant 44.3ml BOTTLE PO PRN (04:54)
[2021-01-29] MEDS ORDERED: SODIUM ZIRCONIUM CYCLOSILICATE 5 GM POWD.PACK PO ONE (06:05)
[2021-01-29] MEDS: Octreotide 400 MCG in 0.9 % Sodium Chloride 100 ML IVC SCH ×2 (06:46→20:36)
[2021-01-29] MEDS: 0.9 % Sodium Chloride 1,000 ML IVC SCH ×2 (06:47→15:34)
[2021-01-29 07:27] LABS: Basophils # 0.1 K/mcL (0.0-0.2); Basophils % 0.4 %; Eosinophils % 0.2 %; Hematocrit 21.4 % (37.5-50.1); Hemoglobin 7.1 g/dL (12.9-16.9); Immature Granulocytes % 0.6 % (0-4); Lymphocytes # 2.8 K/mcL (0.6-4.6); Lymphocytes % 15.8 %; Mean Corpuscular HGB Conc 33.2 g/dL (31.6-35.5); Mean Corpuscular Hemoglobin 30.5 pg (28.0-33.3); Mean Platelet Volume 11.6 fL (9.4-12.4); Monocytes # 1.4 K/mcL (0.0-1.3); Monocytes % 7.9 %; Neutrophils # 13.1 K/mcL (1.6-8.9); Platelet Count 230 K/mcL (140-400); Red Blood Count 2.33 M/mcL (4.19-5.50); Red Cell Distribution Width 18.6 % (11.5-14.5); Segmented Neutrophils % 75.1 %; White Blood Count 17.4 K/mcL (4.3-11.1)
[2021-01-29 07:31] LABS: Mean Corpuscular Volume 91.8 fL (83.0-100.0)
[2021-01-29 07:44] LABS: Albumin 2.4 g/dL (3.5-5.7); Albumin/Globulin Ratio 0.8 (1.1-2.2); Bilirubin,Total 4.4 mg/dL (0.3-1.0); Calcium 7.6 mg/dL (8.6-10.3); Phosphorous 4.6 mg/dL (2.7-4.5); Potassium 5.5 mEq/L (3.5-5.1); Total Protein 5.4 g/dL (6.4-8.9)
[2021-01-29] MEDS: cefTRIAXone 2,000 MG in 0.9 % Sodium Chloride Mini Bag 100 ML IVPB SCH (09:02)
[2021-01-29] MEDS: Thiamine (B-1) 100 MG in 0.9 % Sodium Chloride 50 ML IVPB SCH (11:03)
[2021-01-29 11:08] LABS: INR 1.9; Prothrombin Time 20.9 Seconds (9.4-12.1)
[2021-01-29 11:10] LABS: Activated Partial Thrombo Time 33.8 Seconds (26.0-36.0)
[2021-01-29 12:01] LABS: Hematocrit 19.5 % (37.5-50.1); Hemoglobin 6.5 g/dL (12.9-16.9)
[2021-01-29] MEDS: Folic Acid 1 MG in 0.9 % Sodium Chloride 50 ML IVPB SCH (12:04)
[2021-01-29] MEDS: Pantoprazole 40 MG VIAL IVP SCH (16:52)
[2021-01-29] MEDS: *HR* LORazepam 1 MG TABLET PO PRN (17:06)
[2021-01-29 17:17] LABS: Hematocrit 20.8 % (37.5-50.1); Hemoglobin 6.9 g/dL (12.9-16.9)
[2021-01-29 23:14] LABS: Hematocrit 19.8 % (37.5-50.1); Hemoglobin 6.9 g/dL (12.9-16.9)
[2021-01-30 04:53] LABS: Basophils # 0.3 K/mcL (0.0-0.2); Basophils % 1.7 %; Eosinophils # 0.7 K/mcL (0.0-0.6); Eosinophils % 4.2 %; Hematocrit 19.8 % (37.5-50.1); Hemoglobin 6.8 g/dL (12.9-16.9); Immature Granulocytes % 0.7 % (0-4); Lymphocytes # 3.5 K/mcL (0.6-4.6); Lymphocytes % 21.2 %; Mean Corpuscular HGB Conc 34.3 g/dL (31.6-35.5); Mean Corpuscular Hemoglobin 30.8 pg (28.0-33.3); Mean Corpuscular Volume 89.6 fL (83.0-100.0); Mean Platelet Volume 10.6 fL (9.4-12.4); Monocytes % 11.9 %; Neutrophils # 10.1 K/mcL (1.6-8.9); Nucleated Red Blood Cells 0.1 /100 WBC (0); Platelet Count 177 K/mcL (140-400); Red Blood Count 2.21 M/mcL (4.19-5.50); Red Cell Distribution Width 18.8 % (11.5-14.5); Segmented Neutrophils % 60.3 %; White Blood Count 16.7 K/mcL (4.3-11.1)
[2021-01-30 04:55] LABS: VBG Ionized Calcium 1.15 mmol/L (1.15-1.35)
[2021-01-30] MEDS: Pantoprazole 40 MG VIAL IVP SCH (05:12)
[2021-01-30 05:16] LABS: Albumin 2.2 g/dL (3.5-5.7); Albumin/Globulin Ratio 0.8 (1.1-2.2); Bilirubin,Total 4.2 mg/dL (0.3-1.0); Calcium 7.5 mg/dL (8.6-10.3); Globulin 2.9 g/dL (2.4-3.5); Magnesium 1.9 mg/dL (1.6-2.6); Phosphorous 3.9 mg/dL (2.7-4.5); Potassium 4.7 mEq/L (3.5-5.1); Total Protein 5.1 g/dL (6.4-8.9)
[2021-01-30] MEDS: Thiamine (B-1) 100 MG in 0.9 % Sodium Chloride 50 ML IVPB SCH (08:18)
[2021-01-30] MEDS: cefTRIAXone 2,000 MG in 0.9 % Sodium Chloride Mini Bag 100 ML IVPB SCH (08:18)
[2021-01-30] MEDS: *HR* LORazepam 1 MG TABLET PO PRN ×2 (08:27→20:28)
[2021-01-30] MEDS ORDERED: 0.9 % Sodium Chloride 250 ML ONE (08:33)
[2021-01-30] MEDS: Folic Acid 1 MG in 0.9 % Sodium Chloride 50 ML IVPB SCH (10:45)
[2021-01-30 12:52] LABS: Basophils # 0.3 K/mcL (0.0-0.2); Eosinophils # 0.8 K/mcL (0.0-0.6); Hematocrit 26.2 % (37.5-50.1); Immature Granulocytes % 0.7 % (0-4); Lymphocytes # 3.1 K/mcL (0.6-4.6); Lymphocytes % 18.6 %; Mean Corpuscular HGB Conc 34.4 g/dL (31.6-35.5); Mean Corpuscular Hemoglobin 30.9 pg (28.0-33.3); Mean Platelet Volume 10.2 fL (9.4-12.4); Monocytes # 1.6 K/mcL (0.0-1.3); Neutrophils # 10.4 K/mcL (1.6-8.9); Platelet Count 189 K/mcL (140-400); Red Blood Count 2.91 M/mcL (4.19-5.50); Red Cell Distribution Width 17.4 % (11.5-14.5); Segmented Neutrophils % 63.7 %; White Blood Count 16.4 K/mcL (4.3-11.1)
[2021-01-30] MEDS ORDERED: Albumin 25% 25gram/100mL 25 GM/100 ML IV.SOLN IVPB ONE (13:55)
[2021-01-30] MEDS ORDERED: Saliva Stimulant 44.3ml BOTTLE PO PRN (15:42)
[2021-01-30] MEDS ORDERED: Dextrose Gel 15 GM/37.5 ML TUBE PO PRN ×2 (15:42)
[2021-01-30] MEDS ORDERED: *HR* Dextrose 50 % in Water (Syg) 50 ML SYRINGE IVP PRN (15:42)
[2021-01-30] MEDS ORDERED: Naloxone 0.4 MG/ML INJ IVP PRN (15:42)
[2021-01-30] MEDS ORDERED: D5% in Water 1,000 ML IVC PRN (15:42)
[2021-01-30] MEDS ORDERED: Acetaminophen 325 MG TABLET PO PRN (15:42)
[2021-01-30] MEDS ORDERED: Ondansetron 4 MG/2 ML VIAL IVP PRN (15:42)
[2021-01-30] MEDS ORDERED: Albumin Human 5% 12.5 GM/250 ML IV.SOLN IVC SCH (15:45)
[2021-01-30] MEDS: Lactulose Oral Soln 20 GM/30 ML UDC PO SCH (20:28)
[2021-01-31 09:15] LABS: Basophils # 0.2 K/mcL (0.0-0.2); Basophils % 1.3 %; Eosinophils # 0.7 K/mcL (0.0-0.6); Eosinophils % 5.2 %; Hematocrit 23.7 % (37.5-50.1); Hemoglobin 7.9 g/dL (12.9-16.9); Immature Granulocytes % 0.6 % (0-4); Lymphocytes % 23.2 %; Mean Corpuscular HGB Conc 33.3 g/dL (31.6-35.5); Mean Corpuscular Hemoglobin 30.9 pg (28.0-33.3); Mean Corpuscular Volume 92.6 fL (83.0-100.0); Mean Platelet Volume 10.3 fL (9.4-12.4); Monocytes # 1.6 K/mcL (0.0-1.3); Monocytes % 12.6 %; Neutrophils # 7.4 K/mcL (1.6-8.9); Platelet Count 159 K/mcL (140-400); Red Blood Count 2.56 M/mcL (4.19-5.50); Segmented Neutrophils % 57.1 %
[2021-01-31 09:19] LABS: BUN/Creatinine Ratio 26 (6-26); Blood Urea Nitrogen 35 mg/dL (6-20); Calcium 8.1 mg/dL (8.6-10.3); Carbon Dioxide 20 mEq/L (23-29); Chloride 108 mEq/L (98-107); Glucose 115 mg/dL (70-105); Osmolality,Calculated 285 (280-300); Potassium 4.8 mEq/L (3.5-5.1); Sodium 133 mEq/L (136-145); eGFR For African Americans > 60 (> 60); eGFR For Non-African Americans 55 (> 60)
[2021-01-31] MEDS: *HR* LORazepam 1 MG TABLET PO PRN ×2 (09:42→18:40)
[2021-01-31] MEDS: Lactulose Oral Soln 20 GM/30 ML UDC PO SCH ×2 (09:43→20:34)
[2021-01-31] MEDS: Folic Acid 1 MG TABLET PO SCH (09:43)
[2021-01-31] MEDS: cefTRIAXone 2,000 MG in 0.9 % Sodium Chloride Mini Bag 100 ML IVPB SCH (12:37)
[2021-01-31] MEDS ORDERED: *HR* LORazepam 2 MG/ML VIAL IVP PRN ×3 (13:05)
[2021-01-31] MEDS: Folic Acid 1 MG in 0.9 % Sodium Chloride 50 ML IVPB SCH (15:01)
[2021-01-31] MEDS: Octreotide 400 MCG in 0.9 % Sodium Chloride 100 ML IVC SCH ×2 (16:16→23:42)
[2021-01-31] MEDS ORDERED: SODIUM CHLORIDE/NAHCO3/KCL/PEG 4,000 ML SOLN.RECON PO ONE (17:00)
[2021-01-31 17:29] LABS: Hematocrit 22.5 % (37.5-50.1); Hemoglobin 7.3 g/dL (12.9-16.9)
[2021-02-01 06:58] LABS: Basophils # 0.1 K/mcL (0.0-0.2); Basophils % 0.8 %; Eosinophils # 0.3 K/mcL (0.0-0.6); Eosinophils % 1.7 %; Hematocrit 19.7 % (37.5-50.1); Hemoglobin 6.3 g/dL (12.9-16.9); Immature Granulocytes % 0.7 % (0-4); Lymphocytes # 3.7 K/mcL (0.6-4.6); Lymphocytes % 23.6 %; Mean Corpuscular Hemoglobin 30.4 pg (28.0-33.3); Mean Corpuscular Volume 95.2 fL (83.0-100.0); Mean Platelet Volume 10.5 fL (9.4-12.4); Monocytes # 1.8 K/mcL (0.0-1.3); Monocytes % 11.2 %; Neutrophils # 9.7 K/mcL (1.6-8.9); Nucleated Red Blood Cells 0.2 /100 WBC (0); Platelet Count 184 K/mcL (140-400); Red Blood Count 2.07 M/mcL (4.19-5.50); Red Cell Distribution Width 18.5 % (11.5-14.5); White Blood Count 15.7 K/mcL (4.3-11.1)
[2021-02-01 07:16] LABS: Calcium 7.6 mg/dL (8.6-10.3); Magnesium 2.1 mg/dL (1.6-2.6); Phosphorous 4.2 mg/dL (2.7-4.5); Potassium 4.5 mEq/L (3.5-5.1)
[2021-02-01] MEDS: Folic Acid 1 MG TABLET PO SCH (08:09)
[2021-02-01] MEDS: Lactulose Oral Soln 20 GM/30 ML UDC PO SCH ×2 (08:09→20:22)
[2021-02-01] MEDS: cefTRIAXone 2,000 MG in 0.9 % Sodium Chloride Mini Bag 100 ML IVPB SCH (08:10)
[2021-02-01] MEDS: *HR* LORazepam 1 MG TABLET PO PRN (08:20)
[2021-02-01] MEDS ORDERED: *HR* FentaNYL (PF) 100 MCG/2 ML VIAL ONE (11:55)
[2021-02-01] MEDS ORDERED: *HR* Midazolam HCl 5 MG/5 ML VIAL IVP ONE ×2 (11:56→13:11)
[2021-02-01] MEDS ORDERED: *HR* FentaNYL (PF) 100 MCG/2 ML VIAL IVP ONE (13:11)
[2021-02-01] MEDS ORDERED: 0.9 % Sodium Chloride 250 ML ONE (13:42)
[2021-02-01] MEDS: Folic Acid 1 MG in 0.9 % Sodium Chloride 50 ML IVPB SCH (13:49)
[2021-02-01] MEDS: Octreotide 400 MCG in 0.9 % Sodium Chloride 100 ML IVC SCH ×3 (14:27→23:40)
[2021-02-02 06:58] LABS: Albumin 2.4 g/dL (3.5-5.7); Albumin/Globulin Ratio 0.8 (1.1-2.2); Bilirubin,Direct 1.4 mg/dL (0.0-0.2); Bilirubin,Indirect 2.1 mg/dL (0.0-1.0); Bilirubin,Total 3.5 mg/dL (0.3-1.0); Calcium 7.8 mg/dL (8.6-10.3); Globulin 2.9 g/dL (2.4-3.5); Potassium 4.8 mEq/L (3.5-5.1); Total Protein 5.3 g/dL (6.4-8.9)
[2021-02-02 07:05] LABS: Basophils # 0.1 K/mcL (0.0-0.2); Basophils % 0.8 %; Eosinophils # 0.6 K/mcL (0.0-0.6); Eosinophils % 3.2 %; Hematocrit 19.4 % (37.5-50.1); Immature Granulocytes % 0.8 % (0-4); Lymphocytes % 21.8 %; Mean Corpuscular HGB Conc 33.5 g/dL (31.6-35.5); Mean Corpuscular Hemoglobin 30.7 pg (28.0-33.3); Mean Corpuscular Volume 91.5 fL (83.0-100.0); Mean Platelet Volume 11.1 fL (9.4-12.4); Monocytes # 2.4 K/mcL (0.0-1.3); Monocytes % 12.9 %; Neutrophils # 11.1 K/mcL (1.6-8.9); Nucleated Red Blood Cells 0.2 /100 WBC (0); Platelet Count 149 K/mcL (140-400); Red Blood Count 2.12 M/mcL (4.19-5.50); Red Cell Distribution Width 18.3 % (11.5-14.5); Segmented Neutrophils % 60.5 %; White Blood Count 18.3 K/mcL (4.3-11.1)
[2021-02-02 07:08] LABS: Hemoglobin 6.5 g/dL (12.9-16.9)
[2021-02-02] MEDS: Folic Acid 1 MG TABLET PO SCH (07:46)
[2021-02-02] MEDS: Octreotide 400 MCG in 0.9 % Sodium Chloride 100 ML IVC SCH (07:46)
[2021-02-02] MEDS: Lactulose Oral Soln 20 GM/30 ML UDC PO SCH ×2 (07:47→20:42)
[2021-02-02] MEDS: cefTRIAXone 2,000 MG in 0.9 % Sodium Chloride Mini Bag 100 ML IVPB SCH (07:47)
[2021-02-02] MEDS: *HR* LORazepam 1 MG TABLET PO PRN ×2 (08:00→22:32)
[2021-02-02 10:51] LABS: Uric Acid 11.9 mg/dL (2.3-7.6)
[2021-02-02] MEDS ORDERED: 0.9 % Sodium Chloride 250 ML ONE (10:57)
[2021-02-02 11:49] LABS: Bacteria,Urine Few per hpf (None-Few); Bilirubin,Urine Negative (Negative); Blood,Urine Large (Negative); Clarity,Urine Turbid (Clear); Color,Urine Yellow (Yellow); Glucose,Urine (UA) Normal (Normal); Ketones,Urine Negative (Negative); Leukocyte Esterase,Urine Negative (Negative); Nitrite,Urine Negative (Negative); PH,Urine 5.5 pH Units (5.0-8.0); Protein,Urine 30 mg/dL (Neg-Trace); RBC,Urine TNTC per hpf (0-3); Specific Gravity,Urine 1.023 (1.010-1.025); Squamous Epithelial Cell,Urine Few per hpf (None-Few); Urobilinogen,Urine Normal (Normal); WBC,Urine 50-100 per hpf (0-3)
[2021-02-02 12:04] LABS: Creatinine,Urine 214 mg/dL; Sodium, Urine < 10.0 mEq/L
[2021-02-02] MEDS: 0.9 % Sodium Chloride 1,000 ML IVC SCH ×2 (15:48→17:52)
[2021-02-02] MEDS: Albumin 25% 25gram/100mL 25 GM/100 ML IV.SOLN IVPB SCH ×2 (15:49→21:34)
[2021-02-02] MEDS: Hydrocortisone Acetate 25 MG RECTAL SUPPOSITORY RC SCH ×2 (15:53→20:43)
[2021-02-02 22:52] LABS: Hematocrit 23.6 % (37.5-50.1); Hemoglobin 7.7 g/dL (12.9-16.9)
[2021-02-03] MEDS: 0.9 % Sodium Chloride 1,000 ML IVC SCH (01:45)
[2021-02-03] MEDS: Albumin 25% 25gram/100mL 25 GM/100 ML IV.SOLN IVPB SCH ×2 (05:22→14:27)
[2021-02-03 07:07] LABS: Basophils # 0.1 K/mcL (0.0-0.2); Basophils % 0.8 %; Eosinophils # 0.5 K/mcL (0.0-0.6); Eosinophils % 4.1 %; Hematocrit 19.9 % (37.5-50.1); Hemoglobin 6.7 g/dL (12.9-16.9); Immature Granulocytes % 0.5 % (0-4); Lymphocytes # 2.5 K/mcL (0.6-4.6); Lymphocytes % 20.7 %; Mean Corpuscular HGB Conc 33.7 g/dL (31.6-35.5); Mean Corpuscular Hemoglobin 31.8 pg (28.0-33.3); Mean Corpuscular Volume 94.3 fL (83.0-100.0); Mean Platelet Volume 10.1 fL (9.4-12.4); Monocytes # 1.5 K/mcL (0.0-1.3); Monocytes % 12.3 %; Neutrophils # 7.5 K/mcL (1.6-8.9); Platelet Count 103 K/mcL (140-400); Red Blood Count 2.11 M/mcL (4.19-5.50); Red Cell Distribution Width 17.9 % (11.5-14.5); Segmented Neutrophils % 61.6 %; White Blood Count 12.1 K/mcL (4.3-11.1)
[2021-02-03 08:13] LABS: Calcium 8.1 mg/dL (8.6-10.3)
[2021-02-03] MEDS: Lactulose Oral Soln 20 GM/30 ML UDC PO SCH ×2 (09:34→20:41)
[2021-02-03] MEDS: Folic Acid 1 MG TABLET PO SCH (09:35)
[2021-02-03] MEDS: Hydrocortisone Acetate 25 MG RECTAL SUPPOSITORY RC SCH ×2 (09:38→20:42)
[2021-02-03] MEDS: Folic Acid 1 MG in 0.9 % Sodium Chloride 50 ML IVPB SCH (09:41)
[2021-02-03] MEDS: cefTRIAXone 2,000 MG in 0.9 % Sodium Chloride Mini Bag 100 ML IVPB SCH (09:42)
[2021-02-03] MEDS: *HR* LORazepam 1 MG TABLET PO PRN ×2 (09:52→17:53)
[2021-02-03] MEDS ORDERED: 0.9 % Sodium Chloride 500 ML ONE (10:38)
[2021-02-04] MEDS: Albumin 25% 25gram/100mL 25 GM/100 ML IV.SOLN IVPB SCH ×4 (00:15→18:36)
[2021-02-04] MEDS: *HR* LORazepam 1 MG TABLET PO PRN (05:45)
[2021-02-04 06:37] LABS: Basophils # 0.1 K/mcL (0.0-0.2); Basophils % 0.8 %; Eosinophils # 0.4 K/mcL (0.0-0.6); Eosinophils % 3.9 %; Hematocrit 24.2 % (37.5-50.1); Hemoglobin 7.5 g/dL (12.9-16.9); Immature Granulocytes % 0.3 % (0-4); Lymphocytes # 1.8 K/mcL (0.6-4.6); Lymphocytes % 18.1 %; Mean Corpuscular Hemoglobin 29.8 pg (28.0-33.3); Mean Platelet Volume 10.4 fL (9.4-12.4); Monocytes # 0.8 K/mcL (0.0-1.3); Monocytes % 8.3 %; Neutrophils # 6.9 K/mcL (1.6-8.9); Nucleated Red Blood Cells 0.2 /100 WBC (0); Platelet Count 102 K/mcL (140-400); Red Blood Count 2.52 M/mcL (4.19-5.50); Red Cell Distribution Width 18.5 % (11.5-14.5); Segmented Neutrophils % 68.6 %; White Blood Count 10.1 K/mcL (4.3-11.1)
[2021-02-04 06:48] LABS: Calcium 8.7 mg/dL (8.6-10.3); Magnesium 2.2 mg/dL (1.6-2.6); Potassium 3.9 mEq/L (3.5-5.1)
[2021-02-04] MEDS: cefTRIAXone 2,000 MG in 0.9 % Sodium Chloride Mini Bag 100 ML IVPB SCH (08:23)
[2021-02-04] MEDS: Lactulose Oral Soln 20 GM/30 ML UDC PO SCH ×2 (08:23→19:55)
[2021-02-04] MEDS: Folic Acid 1 MG TABLET PO SCH (08:24)
[2021-02-04] MEDS ORDERED: *HR* FentaNYL (PF) 100 MCG/2 ML VIAL ONE (15:01)
[2021-02-04] MEDS ORDERED: *HR* Midazolam HCl 5 MG/5 ML VIAL IVP ONE ×2 (15:01→15:52)
[2021-02-04] MEDS ORDERED: *HR* FentaNYL (PF) 100 MCG/2 ML VIAL IVP ONE (15:51)
[2021-02-04] MEDS ORDERED: Ringers Solution, Lactated 1,000 ML IVC ONE (16:25)
[2021-02-04] MEDS: Hydrocortisone Acetate 25 MG RECTAL SUPPOSITORY RC SCH ×2 (16:27→19:51)
[2021-02-04 16:32] LABS: Glucose,Peritoneal Fluid 117 mg/dL (No Ref Range); LDH,Peritoneal Fluid 28 Units/L (No Ref Range); Total Protein,Peritoneal Fluid < 2.0 g/dL
[2021-02-04 17:00] LABS: RBC,Peritoneal Fluid < 2000 RBC/mcL
[2021-02-04 19:58] LABS: Appearance of Peritoneal Fl CLEAR (Clear); Basophils,Peritoneal Fluid 0 %; Eosinophils,Peritoneal Fluid 0 %
[2021-02-05] MEDS: Albumin 25% 25gram/100mL 25 GM/100 ML IV.SOLN IVPB SCH ×2 (03:00→11:30)
[2021-02-05] MEDS: Hydrocortisone Acetate 25 MG RECTAL SUPPOSITORY RC SCH ×2 (08:49→21:06)
[2021-02-05] MEDS: Folic Acid 1 MG TABLET PO SCH (08:52)
[2021-02-05] MEDS: cefTRIAXone 2,000 MG in 0.9 % Sodium Chloride Mini Bag 100 ML IVPB SCH (08:52)
[2021-02-05] MEDS: Lactulose Oral Soln 20 GM/30 ML UDC PO SCH ×2 (08:52→21:06)
[2021-02-05] MEDS: *HR* LORazepam 1 MG TABLET PO PRN (09:03)
[2021-02-05 13:10] LABS: Hemoglobin 6.6 g/dL (12.9-16.9)
[2021-02-05 13:12] LABS: Basophils # 0.1 K/mcL (0.0-0.2); Eosinophils # 0.4 K/mcL (0.0-0.6); Eosinophils % 4.6 %; Hematocrit 20.6 % (37.5-50.1); Immature Granulocytes % 0.4 % (0-4); Immature Platelets 3.9 % (1.1-6.1); Lymphocytes # 1.5 K/mcL (0.6-4.6); Lymphocytes % 17.4 %; Mean Corpuscular Volume 96.7 fL (83.0-100.0); Mean Platelet Volume 10.2 fL (9.4-12.4); Monocytes # 0.7 K/mcL (0.0-1.3); Monocytes % 7.7 %; Neutrophils # 5.8 K/mcL (1.6-8.9); Platelet Count 103 K/mcL (140-400); Red Blood Count 2.13 M/mcL (4.19-5.50); Red Cell Distribution Width 18.8 % (11.5-14.5); Segmented Neutrophils % 68.9 %; White Blood Count 8.4 K/mcL (4.3-11.1)
[2021-02-05 13:17] LABS: INR 2.1; Prothrombin Time 23.2 Seconds (9.4-12.1)
[2021-02-05 13:33] LABS: Platelet Estimate Slight Decrease (Normal)
[2021-02-05 13:35] LABS: Alanine Aminotransferase 11 Units/L (7-52); Albumin 3.5 g/dL (3.5-5.7); Albumin/Globulin Ratio 1.8 (1.1-2.2); Alkaline Phosphatase 110 Units/L (34-104); Aspartate Amino Transferase 55 Units/L (13-39); BUN/Creatinine Ratio 19 (6-26); Bilirubin,Total 2.5 mg/dL (0.3-1.0); Blood Urea Nitrogen 23 mg/dL (6-20); Calcium 8.3 mg/dL (8.6-10.3); Carbon Dioxide 17 mEq/L (23-29); Chloride 110 mEq/L (98-107); Glucose 147 mg/dL (70-105); Osmolality,Calculated 286 (280-300); Potassium 3.5 mEq/L (3.5-5.1); Sodium 135 mEq/L (136-145); Total Protein 5.5 g/dL (6.4-8.9); eGFR For African Americans > 60 (> 60); eGFR For Non-African Americans > 60 (> 60)
[2021-02-05] MEDS: LIDOCAINE VISCOUS TP SCH ×2 (18:18→19:22)
[2021-02-05] MEDS: NIFEDIPINE TP SCH ×2 (18:18→19:22)
[2021-02-05] MEDS: AQUAPHOR TP SCH ×2 (18:18→19:22)
[2021-02-05] MEDS ORDERED: 0.9 % Sodium Chloride 250 ML ONE ×2 (18:34→22:15)
[2021-02-06] MEDS: Albumin 25% 25gram/100mL 25 GM/100 ML IV.SOLN IVPB SCH ×4 (00:12→18:09)
[2021-02-06] MEDS ORDERED: Albumin 25% 25gram/100mL 25 GM/100 ML IV.SOLN IVPB SCH (03:00)
[2021-02-06 06:01] LABS: Hematocrit 22.1 % (37.5-50.1); Hemoglobin 7.3 g/dL (12.9-16.9); Red Cell Distribution Width 18.9 % (11.5-14.5)
[2021-02-06 06:03] LABS: Basophils # 0.1 K/mcL (0.0-0.2); Basophils % 0.8 %; Eosinophils # 0.5 K/mcL (0.0-0.6); Eosinophils % 4.9 %; Immature Granulocytes % 0.7 % (0-4); Immature Platelets 4.2 % (1.1-6.1); Lymphocytes # 1.8 K/mcL (0.6-4.6); Mean Corpuscular Hemoglobin 31.1 pg (28.0-33.3); Mean Platelet Volume 10.1 fL (9.4-12.4); Monocytes # 0.9 K/mcL (0.0-1.3); Monocytes % 9.8 %; Neutrophils # 5.8 K/mcL (1.6-8.9); Red Blood Count 2.35 M/mcL (4.19-5.50); Segmented Neutrophils % 63.8 %; White Blood Count 9.1 K/mcL (4.3-11.1)
[2021-02-06 06:42] LABS: Anisocytosis 1+ (Not Present); Platelet Count 95 K/mcL (140-400); Platelet Estimate Decreased (Normal)
[2021-02-06 06:56] LABS: BUN/Creatinine Ratio 17 (6-26); Blood Urea Nitrogen 18 mg/dL (6-20); Calcium 8.3 mg/dL (8.6-10.3); Carbon Dioxide 17 mEq/L (23-29); Chloride 112 mEq/L (98-107); Glucose 110 mg/dL (70-105); Osmolality,Calculated 281 (280-300); Phosphorous 2.2 mg/dL (2.7-4.5); Potassium 3.2 mEq/L (3.5-5.1); Sodium 134 mEq/L (136-145); eGFR For African Americans > 60 (> 60); eGFR For Non-African Americans > 60 (> 60)
[2021-02-06 07:05] LABS: Magnesium 1.8 mg/dL (1.6-2.6)
[2021-02-06] MEDS: cefTRIAXone 2,000 MG in 0.9 % Sodium Chloride Mini Bag 100 ML IVPB SCH (09:08)
[2021-02-06] MEDS: Lactulose Oral Soln 20 GM/30 ML UDC PO SCH ×2 (09:09→20:03)
[2021-02-06] MEDS: Folic Acid 1 MG TABLET PO SCH (09:09)
[2021-02-06] MEDS: *HR* LORazepam 1 MG TABLET PO PRN ×2 (09:09→20:04)
[2021-02-06] MEDS: Hydrocortisone Acetate 25 MG RECTAL SUPPOSITORY RC SCH ×2 (09:09→20:06)
[2021-02-06] MEDS: AQUAPHOR TP SCH ×2 (09:10→10:00)
[2021-02-06] MEDS: NIFEDIPINE TP SCH ×2 (09:10→10:00)
[2021-02-06] MEDS: LIDOCAINE VISCOUS TP SCH ×2 (09:10→10:00)
[2021-02-06] MEDS ORDERED: Furosemide 40 MG/4 ML VIAL IVP SCH (10:45)
[2021-02-06] MEDS: Furosemide 40 MG/4 ML VIAL IVP SCH (11:21)
[2021-02-06] MEDS ORDERED: Iron Sucrose Complex 400 MG in 0.9 % Sodium Chloride 250 ML IVPB ONE (18:15)
[2021-02-07 05:03] LABS: Basophils # 0.1 K/mcL (0.0-0.2); Basophils % 0.7 %; Eosinophils # 0.6 K/mcL (0.0-0.6); Eosinophils % 6.2 %; Hematocrit 21.9 % (37.5-50.1); Hemoglobin 7.1 g/dL (12.9-16.9); Immature Granulocytes % 0.3 % (0-4); Immature Platelets 4.4 % (1.1-6.1); Lymphocytes # 1.8 K/mcL (0.6-4.6); Lymphocytes % 19.6 %; Mean Corpuscular HGB Conc 32.4 g/dL (31.6-35.5); Mean Corpuscular Hemoglobin 30.6 pg (28.0-33.3); Mean Corpuscular Volume 94.4 fL (83.0-100.0); Mean Platelet Volume 10.6 fL (9.4-12.4); Monocytes # 0.7 K/mcL (0.0-1.3); Monocytes % 7.5 %; Neutrophils # 6.2 K/mcL (1.6-8.9); Red Blood Count 2.32 M/mcL (4.19-5.50); Red Cell Distribution Width 19.2 % (11.5-14.5); Segmented Neutrophils % 65.7 %; White Blood Count 9.4 K/mcL (4.3-11.1)
[2021-02-07 05:04] LABS: Platelet Count 90 K/mcL (140-400)
[2021-02-07 05:17] LABS: BUN/Creatinine Ratio 14 (6-26); Blood Urea Nitrogen 14 mg/dL (6-20); Calcium 8.4 mg/dL (8.6-10.3); Carbon Dioxide 20 mEq/L (23-29); Chloride 108 mEq/L (98-107); Glucose 105 mg/dL (70-105); Magnesium 1.5 mg/dL (1.6-2.6); Osmolality,Calculated 279 (280-300); Potassium 3.3 mEq/L (3.5-5.1); Sodium 134 mEq/L (136-145); eGFR For African Americans > 60 (> 60); eGFR For Non-African Americans > 60 (> 60)
[2021-02-07] MEDS: *HR* LORazepam 1 MG TABLET PO PRN ×3 (06:43→23:49)
[2021-02-07] MEDS: Folic Acid 1 MG TABLET PO SCH (10:28)
[2021-02-07] MEDS: Furosemide 40 MG/4 ML VIAL IVP SCH (10:29)
[2021-02-07] MEDS: Lactulose Oral Soln 20 GM/30 ML UDC PO SCH ×2 (10:29→21:12)
[2021-02-07] MEDS: Hydrocortisone Acetate 25 MG RECTAL SUPPOSITORY RC SCH ×2 (10:29→21:13)
[2021-02-07] MEDS: NIFEDIPINE TP SCH ×2 (10:30→21:13)
[2021-02-07] MEDS: AQUAPHOR TP SCH ×2 (10:30→21:13)
[2021-02-07] MEDS: LIDOCAINE VISCOUS TP SCH ×2 (10:30→21:13)
[2021-02-07] MEDS: cefTRIAXone 2,000 MG in 0.9 % Sodium Chloride Mini Bag 100 ML IVPB SCH (10:30)
[2021-02-08 06:14] LABS: Basophils % 0.4 %; Hemoglobin 7.4 g/dL (12.9-16.9); Mean Corpuscular Volume 95.5 fL (83.0-100.0); Mean Platelet Volume 10.9 fL (9.4-12.4)
[2021-02-08 06:16] LABS: Eosinophils # 0.2 K/mcL (0.0-0.6); Eosinophils % 1.6 %; Hematocrit 23.2 % (37.5-50.1); Immature Granulocytes % 0.4 % (0-4); Immature Platelets 5.1 % (1.1-6.1); Lymphocytes # 1.2 K/mcL (0.6-4.6); Lymphocytes % 11.2 %; Mean Corpuscular HGB Conc 31.9 g/dL (31.6-35.5); Mean Corpuscular Hemoglobin 30.5 pg (28.0-33.3); Monocytes # 0.8 K/mcL (0.0-1.3); Monocytes % 6.9 %; Neutrophils # 8.8 K/mcL (1.6-8.9); Platelet Count 102 K/mcL (140-400); Red Blood Count 2.43 M/mcL (4.19-5.50); Red Cell Distribution Width 18.9 % (11.5-14.5); Segmented Neutrophils % 79.5 %
[2021-02-08 06:25] LABS: BUN/Creatinine Ratio 13 (6-26); Blood Urea Nitrogen 13 mg/dL (6-20); Calcium 8.4 mg/dL (8.6-10.3); Carbon Dioxide 18 mEq/L (23-29); Chloride 108 mEq/L (98-107); Glucose 141 mg/dL (70-105); Magnesium 1.8 mg/dL (1.6-2.6); Osmolality,Calculated 276 (280-300); Phosphorous 2.5 mg/dL (2.7-4.5); Sodium 132 mEq/L (136-145); eGFR For African Americans > 60 (> 60); eGFR For Non-African Americans > 60 (> 60)
[2021-02-08] MEDS ORDERED: Furosemide 40 MG TABLET PO SCH (09:00)
[2021-02-08] MEDS: Lactulose Oral Soln 20 GM/30 ML UDC PO SCH (09:51)
[2021-02-08] MEDS: Folic Acid 1 MG TABLET PO SCH (09:52)
[2021-02-08] MEDS: Hydrocortisone Acetate 25 MG RECTAL SUPPOSITORY RC SCH (09:52)
[2021-02-08] MEDS: cefTRIAXone 2,000 MG in 0.9 % Sodium Chloride Mini Bag 100 ML IVPB SCH (09:53)
[2021-02-08] MEDS: NIFEDIPINE TP SCH (09:57)
[2021-02-08] MEDS: AQUAPHOR TP SCH (09:57)
[2021-02-08] MEDS: LIDOCAINE VISCOUS TP SCH (09:57)
[2021-02-08] MEDS: *HR* LORazepam 1 MG TABLET PO PRN (13:18)
[2021-02-08 14:16] VITALS: BP 92/51; PULSE 64; TEMP 97.8; O2SAT 96
[2021-02-08 22:15] LABS: Fluid Source for Albumin PERITONEAL
== END 2021-02-08 17:39 | disposition home health service (06) | DRG 368 ==
LOC: EMEROOARM → ICNU → SUATTDRO 03:19 → OBSVTOIN 03:19 → 2NNU 03:53 → ICNU 05:02 → 3ANU 01-30 17:46
PROVIDERS: ADMIT Internal Medicine; ATTEND Internal Medicine

== ENCOUNTER 2021-02-15 20:45 | Inpatient (IN) ==
[2021-02-15 22:07] LABS: INR 1.4; Prothrombin Time 16.1 Seconds (9.4-12.1)
[2021-02-15 22:10] LABS: Activated Partial Thrombo Time 32.8 Seconds (26.0-36.0)
[2021-02-15 22:24] LABS: Albumin 3.1 g/dL (3.5-5.7); Albumin/Globulin Ratio 1.2 (1.1-2.2); Bilirubin,Total 3.2 mg/dL (0.3-1.0); Calcium 8.3 mg/dL (8.6-10.3); Globulin 2.5 g/dL (2.4-3.5); Potassium 6.7 mEq/L (3.5-5.1); Total Protein 5.6 g/dL (6.4-8.9)
[2021-02-15 22:27] LABS: Basophils % 0.3 %; Eosinophils # 0.1 K/mcL (0.0-0.6); Eosinophils % 0.9 %; Immature Granulocytes % 0.4 % (0-4); Lymphocytes # 0.7 K/mcL (0.6-4.6); Lymphocytes % 6.9 %; Mean Corpuscular HGB Conc 34.4 g/dL (31.6-35.5); Mean Corpuscular Hemoglobin 31.9 pg (28.0-33.3); Mean Corpuscular Volume 92.6 fL (83.0-100.0); Mean Platelet Volume 10.5 fL (9.4-12.4); Monocytes % 9.5 %; Neutrophils # 8.6 K/mcL (1.6-8.9); Platelet Count 168 K/mcL (140-400); Red Blood Count 1.35 M/mcL (4.19-5.50); Red Cell Distribution Width 19.2 % (11.5-14.5); White Blood Count 10.5 K/mcL (4.3-11.1)
[2021-02-15 22:34] LABS: Hemoglobin 4.3 g/dL (12.9-16.9)
[2021-02-15 22:35] LABS: Hematocrit 12.5 % (37.5-50.1)
[2021-02-15] MEDS ORDERED: Insulin Human Regular 10 UNIT in 0.9 % Sodium Chloride 10 ML IV ONE (22:45)
[2021-02-15] MEDS ORDERED: Calcium Gluconate 1gm/50mL BAG IVPB ONE (23:00)
[2021-02-15] MEDS: *HR* Dextrose 50 % in Water (Syg) 50 ML SYRINGE IVP ONE (23:18)
[2021-02-15 23:20] LABS: Anisocytosis 1+ (Not Present); Hypochromasia Present (Not Present); Platelet Estimate Normal (Normal)
[2021-02-15] MEDS ORDERED: 0.9 % Sodium Chloride 500 ML ONE (23:20)
[2021-02-15 23:21] LABS: Microcytosis Present (Not Present)
[2021-02-15] MEDS ORDERED: Pantoprazole 40 MG VIAL IVP ONE (23:44)
[2021-02-16] MEDS ORDERED: 0.9 % Sodium Chloride 500 ML IVC ONE ×2 (00:04→04:13)
[2021-02-16] MEDS ORDERED: Naloxone 0.4 MG/ML INJ IVP PRN (00:09)
[2021-02-16] MEDS ORDERED: Melatonin 3 MG TABLET PO PRN (00:09)
[2021-02-16] MEDS ORDERED: SODIUM ZIRCONIUM CYCLOSILICATE 5 GM POWD.PACK PO ONE ×2 (01:00→07:53)
[2021-02-16] MEDS: Albumin 25% 25gram/100mL 25 GM/100 ML IV.SOLN IVPB SCH ×2 (02:39→11:45)
[2021-02-16] MEDS: Octreotide 400 MCG in 0.9 % Sodium Chloride 100 ML IVC SCH ×3 (02:41→21:03)
[2021-02-16 05:04] LABS: Hematocrit 15.2 % (37.5-50.1)
[2021-02-16 05:06] LABS: Mean Corpuscular HGB Conc 33.6 g/dL (31.6-35.5); Mean Corpuscular Hemoglobin 30.7 pg (28.0-33.3); Mean Corpuscular Volume 91.6 fL (83.0-100.0); Red Blood Count 1.66 M/mcL (4.19-5.50); Red Cell Distribution Width 17.5 % (11.5-14.5); White Blood Count 10.3 K/mcL (4.3-11.1)
[2021-02-16 05:11] LABS: INR 1.6; Prothrombin Time 17.7 Seconds (9.4-12.1)
[2021-02-16 05:22] LABS: Bacteria,Urine Few per hpf (None-Few); Bilirubin,Urine Negative (Negative); Blood,Urine Negative (Negative); Budding Yeast,Urine Few per hpf (None Seen); Clarity,Urine Clear (Clear); Color,Urine Yellow (Yellow); Glucose,Urine (UA) Normal (Normal); Hyaline Casts,Urine Few per lpf (None Seen); Ketones,Urine Negative (Negative); Leukocyte Esterase,Urine Moderate (Negative); Mucus,Urine Few per lpf (None-Few); Nitrite,Urine Negative (Negative); PH,Urine 5.5 pH Units (5.0-8.0); Protein,Urine Negative (Neg-Trace); Specific Gravity,Urine 1.014 (1.010-1.025); Urobilinogen,Urine Normal (Normal); WBC,Urine 30-50 per hpf (0-3)
[2021-02-16 05:27] LABS: Hemoglobin 5.1 g/dL (12.9-16.9)
[2021-02-16 05:29] LABS: Albumin 3.4 g/dL (3.5-5.7); Albumin/Globulin Ratio 1.4 (1.1-2.2); Bilirubin,Total 4.3 mg/dL (0.3-1.0); Calcium 8.7 mg/dL (8.6-10.3); Globulin 2.4 g/dL (2.4-3.5); Magnesium 1.8 mg/dL (1.6-2.6); Phosphorous 6.1 mg/dL (2.7-4.5); Potassium 5.9 mEq/L (3.5-5.1); Total Protein 5.8 g/dL (6.4-8.9)
[2021-02-16] MEDS ORDERED: 0.9 % Sodium Chloride 250 ML ONE ×3 (05:38→16:05)
[2021-02-16] MEDS: Folic Acid 1 MG TABLET PO SCH (08:11)
[2021-02-16] MEDS: Pantoprazole 40 MG VIAL IVP SCH ×2 (08:11→21:02)
[2021-02-16] MEDS: Thiamine (B-1) 100 MG TABLET PO SCH (08:11)
[2021-02-16] MEDS ORDERED: Ringers Solution, Lactated 1,000 ML ONE (08:37)
[2021-02-16 09:05] LABS: Sodium, Urine 32.2 mEq/L
[2021-02-16] MEDS ORDERED: Ringers Solution, Lactated 1,000 ML IVC ONE (10:37)
[2021-02-16] MEDS: cefTRIAXone 2,000 MG in 0.9 % Sodium Chloride Mini Bag 100 ML IVPB SCH (11:45)
[2021-02-16] MEDS ORDERED: *HR* Dextrose 50 % in Water (Syg) 50 ML SYRINGE IVP ONE (11:47)
[2021-02-16] MEDS ORDERED: Calcium Gluconate 1gm/50mL 1 GM/50 ML BAG IVPB ONE (11:48)
[2021-02-16] MEDS ORDERED: Insulin Human Regular 10 UNIT in 0.9 % Sodium Chloride 10 ML IV ONE (12:00)
[2021-02-16] MEDS: Lactulose Oral Soln 20 GM/30 ML UDC PO SCH ×2 (13:02→21:02)
[2021-02-16 13:36] LABS: Hematocrit 20.5 % (37.5-50.1); Hemoglobin 6.8 g/dL (12.9-16.9)
[2021-02-16] MEDS: *HR* Dextrose 50 % in Water (Syg) 50 ML SYRINGE IVP ONE (14:03)
[2021-02-16] MEDS ORDERED: Albumin 25% 25gram/100mL 25 GM/100 ML IV.SOLN IVPB SCH (16:00)
[2021-02-16 17:53] LABS: Influenza A PCR Negative (Negative); Influenza B PCR Negative (Negative); Resp. Syncytial Virus PCR Negative (Negative)
[2021-02-16 18:22] LABS: SARS-CoV-2 by PCR (In House) Positive (Negative)
[2021-02-16 21:07] LABS: Hematocrit 25.3 % (37.5-50.1)
[2021-02-16 21:25] LABS: Calcium 8.5 mg/dL (8.6-10.3); Potassium 5.3 mEq/L (3.5-5.1)
[2021-02-17 07:51] LABS: Basophils % 0.6 %; Hemoglobin 7.9 g/dL (12.9-16.9)
[2021-02-17 07:53] LABS: Basophils # 0.1 K/mcL (0.0-0.2); Eosinophils # 0.3 K/mcL (0.0-0.6); Eosinophils % 3.1 %; Immature Granulocytes % 0.3 % (0-4); Immature Platelets 4.9 % (1.1-6.1); Lymphocytes # 1.9 K/mcL (0.6-4.6); Lymphocytes % 18.5 %; Mean Corpuscular HGB Conc 32.9 g/dL (31.6-35.5); Mean Corpuscular Hemoglobin 30.7 pg (28.0-33.3); Mean Corpuscular Volume 93.4 fL (83.0-100.0); Monocytes # 1.1 K/mcL (0.0-1.3); Monocytes % 10.2 %; Platelet Count 109 K/mcL (140-400); Red Blood Count 2.57 M/mcL (4.19-5.50); Red Cell Distribution Width 17.2 % (11.5-14.5); Segmented Neutrophils % 67.3 %; White Blood Count 10.4 K/mcL (4.3-11.1)
[2021-02-17 08:01] LABS: Calcium 8.6 mg/dL (8.6-10.3); Potassium 5.5 mEq/L (3.5-5.1)
[2021-02-17] MEDS ORDERED: Albumin 25% 25gram/100mL 25 GM/100 ML IV.SOLN IVPB ONE (08:15)
[2021-02-17] MEDS: Octreotide 400 MCG in 0.9 % Sodium Chloride 100 ML IVC SCH ×3 (08:53→16:45)
[2021-02-17] MEDS: Lactulose Oral Soln 20 GM/30 ML UDC PO SCH ×2 (08:54→09:12)
[2021-02-17] MEDS: cefTRIAXone 2,000 MG in 0.9 % Sodium Chloride Mini Bag 100 ML IVPB SCH (08:54)
[2021-02-17] MEDS: Pantoprazole 40 MG VIAL IVP SCH ×2 (08:55→19:59)
[2021-02-17] MEDS: SODIUM ZIRCONIUM CYCLOSILICATE 5 GM POWD.PACK PO SCH (08:55)
[2021-02-17] MEDS: Thiamine (B-1) 100 MG TABLET PO SCH (08:55)
[2021-02-17] MEDS: Folic Acid 1 MG TABLET PO SCH (08:56)
[2021-02-17] MEDS: *HR* LORazepam 1 MG TABLET PO PRN (09:11)
[2021-02-17] MEDS ORDERED: Acetaminophen 325 MG TABLET PO PRN (14:28)
[2021-02-17] MEDS: Nystatin POWDER 30 GM BOTTLE TP SCH ×2 (17:09→19:59)
[2021-02-17 20:12] LABS: Basophils # 0.1 K/mcL (0.0-0.2); Basophils % 0.6 %; Eosinophils # 0.3 K/mcL (0.0-0.6); Eosinophils % 3.8 %; Hematocrit 21.7 % (37.5-50.1); Immature Granulocytes % 0.2 % (0-4); Immature Platelets 3.9 % (1.1-6.1); Lymphocytes # 1.5 K/mcL (0.6-4.6); Lymphocytes % 17.1 %; Mean Corpuscular HGB Conc 32.3 g/dL (31.6-35.5); Mean Corpuscular Hemoglobin 30.4 pg (28.0-33.3); Mean Corpuscular Volume 94.3 fL (83.0-100.0); Mean Platelet Volume 10.6 fL (9.4-12.4); Monocytes # 0.9 K/mcL (0.0-1.3); Monocytes % 10.2 %; Neutrophils # 6.1 K/mcL (1.6-8.9); Red Cell Distribution Width 17.3 % (11.5-14.5); Segmented Neutrophils % 68.1 %; White Blood Count 8.9 K/mcL (4.3-11.1)
[2021-02-17 20:14] LABS: Platelet Count 99 K/mcL (140-400)
[2021-02-17] MEDS: Budesonide/Formoterol 160/4.5 1 PUFF INH IH SCH (20:37)
[2021-02-18] MEDS: Octreotide 400 MCG in 0.9 % Sodium Chloride 100 ML IVC SCH ×3 (01:50→21:09)
[2021-02-18 05:12] LABS: Immature Granulocytes % 0.4 % (0-4)
[2021-02-18 05:14] LABS: Basophils % 0.5 %; Eosinophils # 0.2 K/mcL (0.0-0.6); Eosinophils % 2.2 %; Hemoglobin 6.9 g/dL (12.9-16.9); Immature Platelets 4.1 % (1.1-6.1); Lymphocytes # 1.7 K/mcL (0.6-4.6); Lymphocytes % 21.5 %; Mean Corpuscular HGB Conc 32.9 g/dL (31.6-35.5); Mean Corpuscular Hemoglobin 31.2 pg (28.0-33.3); Mean Platelet Volume 10.8 fL (9.4-12.4); Monocytes % 12.3 %; Neutrophils # 5.1 K/mcL (1.6-8.9); Platelet Count 103 K/mcL (140-400); Red Blood Count 2.21 M/mcL (4.19-5.50); Red Cell Distribution Width 17.3 % (11.5-14.5); Segmented Neutrophils % 63.1 %; White Blood Count 8.1 K/mcL (4.3-11.1)
[2021-02-18 05:19] LABS: INR 1.6; Prothrombin Time 18.1 Seconds (9.4-12.1)
[2021-02-18 05:32] LABS: Calcium 8.5 mg/dL (8.6-10.3); Potassium 4.8 mEq/L (3.5-5.1)
[2021-02-18] MEDS ORDERED: 0.9 % Sodium Chloride 250 ML ONE (09:07)
[2021-02-18] MEDS: cefTRIAXone 2,000 MG in 0.9 % Sodium Chloride Mini Bag 100 ML IVPB SCH (09:32)
[2021-02-18] MEDS: Pantoprazole 40 MG VIAL IVP SCH ×2 (09:35→21:09)
[2021-02-18] MEDS: Thiamine (B-1) 100 MG TABLET PO SCH (09:38)
[2021-02-18] MEDS: Nystatin POWDER 30 GM BOTTLE TP SCH ×3 (09:39→21:09)
[2021-02-18] MEDS: SODIUM ZIRCONIUM CYCLOSILICATE 5 GM POWD.PACK PO SCH (09:39)
[2021-02-18] MEDS: Folic Acid 1 MG TABLET PO SCH (09:39)
[2021-02-18] MEDS: *HR* LORazepam 1 MG TABLET PO PRN ×2 (10:08→21:09)
[2021-02-18] MEDS: Budesonide/Formoterol 160/4.5 1 PUFF INH IH SCH ×2 (10:17→19:43)
[2021-02-18 17:55] LABS: Hematocrit 25.2 % (37.5-50.1); Hemoglobin 8.1 g/dL (12.9-16.9)
[2021-02-18 19:07] LABS: RBC,Peritoneal Fluid < 2000 RBC/mcL
[2021-02-18 19:21] LABS: Amylase,Peritoneal Fluid < 10 Units/L (No Ref Range); Glucose,Peritoneal Fluid 128 mg/dL (No Ref Range); LDH,Peritoneal Fluid 29 Units/L (No Ref Range); Total Protein,Peritoneal Fluid < 2.0 g/dL
[2021-02-18 21:49] LABS: Appearance of Peritoneal Fl CLEAR (Clear)
[2021-02-19 03:30] LABS: Hemoglobin 8.1 g/dL (12.9-16.9); Immature Granulocytes % 0.3 % (0-4); Lymphocytes % 24.9 %; Mean Platelet Volume 10.5 fL (9.4-12.4)
[2021-02-19 03:32] LABS: Basophils # 0.1 K/mcL (0.0-0.2); Basophils % 0.7 %; Eosinophils # 0.4 K/mcL (0.0-0.6); Hematocrit 24.7 % (37.5-50.1); Immature Platelets 3.6 % (1.1-6.1); Lymphocytes # 2.2 K/mcL (0.6-4.6); Mean Corpuscular HGB Conc 32.8 g/dL (31.6-35.5); Mean Corpuscular Hemoglobin 30.8 pg (28.0-33.3); Mean Corpuscular Volume 93.9 fL (83.0-100.0); Monocytes # 0.8 K/mcL (0.0-1.3); Monocytes % 9.3 %; Neutrophils # 5.2 K/mcL (1.6-8.9); Red Blood Count 2.63 M/mcL (4.19-5.50); Red Cell Distribution Width 16.9 % (11.5-14.5); Segmented Neutrophils % 59.8 %; White Blood Count 8.7 K/mcL (4.3-11.1)
[2021-02-19 03:43] LABS: Alanine Aminotransferase 17 Units/L (7-52); Albumin 2.8 g/dL (3.5-5.7); Albumin/Globulin Ratio 1.3 (1.1-2.2); Alkaline Phosphatase 168 Units/L (34-104); Aspartate Amino Transferase 87 Units/L (13-39); BUN/Creatinine Ratio 21 (6-26); Bilirubin,Total 1.7 mg/dL (0.3-1.0); Blood Urea Nitrogen 30 mg/dL (6-20); Carbon Dioxide 20 mEq/L (23-29); Chloride 108 mEq/L (98-107); Globulin 2.2 g/dL (2.4-3.5); Glucose 118 mg/dL (70-105); Osmolality,Calculated 285 (280-300); Potassium 4.7 mEq/L (3.5-5.1); Sodium 134 mEq/L (136-145); eGFR For African Americans > 60 (> 60); eGFR For Non-African Americans 51 (> 60)
[2021-02-19 03:44] LABS: Platelet Count 90 K/mcL (140-400)
[2021-02-19 04:03] LABS: INR 1.6; Prothrombin Time 18.2 Seconds (9.4-12.1)
[2021-02-19 04:05] LABS: Activated Partial Thrombo Time 35.3 Seconds (26.0-36.0)
[2021-02-19] MEDS: Octreotide 400 MCG in 0.9 % Sodium Chloride 100 ML IVC SCH ×2 (06:57→16:40)
[2021-02-19] MEDS: Budesonide/Formoterol 160/4.5 1 PUFF INH IH SCH ×2 (08:10→20:41)
[2021-02-19] MEDS: Folic Acid 1 MG TABLET PO SCH (09:46)
[2021-02-19] MEDS: Pantoprazole 40 MG VIAL IVP SCH ×2 (09:46→20:34)
[2021-02-19] MEDS: Thiamine (B-1) 100 MG TABLET PO SCH (09:46)
[2021-02-19] MEDS: SODIUM ZIRCONIUM CYCLOSILICATE 5 GM POWD.PACK PO SCH (09:46)
[2021-02-19] MEDS: Nystatin POWDER 30 GM BOTTLE TP SCH ×3 (09:47→20:33)
[2021-02-19] MEDS: cefTRIAXone 2,000 MG in 0.9 % Sodium Chloride Mini Bag 100 ML IVPB SCH (09:47)
[2021-02-19] MEDS: *HR* LORazepam 1 MG TABLET PO PRN ×2 (10:45→22:34)
[2021-02-19] MEDS ORDERED: Silver Nitrate Applicator 1 STICK..EA. TP ONE (13:36)
[2021-02-19] MEDS ORDERED: Morphine Sulfate 2 MG/ML SYRINGE IVP ONE (13:53)
[2021-02-19] MEDS ORDERED: Tranexamic Acid 1,000 MG/10 ML VIAL IR ONE (14:00)
[2021-02-19] MEDS ORDERED: Albumin 25% 25gram/100mL 25 GM/100 ML IV.SOLN IVPB ONE (14:25)
[2021-02-19 14:39] LABS: Hematocrit 26.9 % (37.5-50.1)
[2021-02-20] MEDS: Octreotide 400 MCG in 0.9 % Sodium Chloride 100 ML IVC SCH ×3 (05:57→16:12)
[2021-02-20 07:18] LABS: Hemoglobin 7.5 g/dL (12.9-16.9)
[2021-02-20 07:20] LABS: Eosinophils # 0.9 K/mcL (0.0-0.6); Hematocrit 22.7 % (37.5-50.1); Immature Platelets 3.8 % (1.1-6.1); Mean Corpuscular Hemoglobin 31.9 pg (28.0-33.3); Mean Corpuscular Volume 96.6 fL (83.0-100.0); Mean Platelet Volume 10.4 fL (9.4-12.4); Red Blood Count 2.35 M/mcL (4.19-5.50); Red Cell Distribution Width 17.9 % (11.5-14.5); White Blood Count 8.9 K/mcL (4.3-11.1)
[2021-02-20 07:29] LABS: Platelet Count 96 K/mcL (140-400)
[2021-02-20 07:30] LABS: INR 1.6; Prothrombin Time 17.7 Seconds (9.4-12.1)
[2021-02-20 07:33] LABS: Activated Partial Thrombo Time 35.4 Seconds (26.0-36.0)
[2021-02-20 07:39] LABS: Alanine Aminotransferase 13 Units/L (7-52); Albumin 2.9 g/dL (3.5-5.7); Albumin/Globulin Ratio 1.3 (1.1-2.2); Alkaline Phosphatase 149 Units/L (34-104); Aspartate Amino Transferase 55 Units/L (13-39); BUN/Creatinine Ratio 19 (6-26); Blood Urea Nitrogen 22 mg/dL (6-20); Calcium 8.1 mg/dL (8.6-10.3); Carbon Dioxide 21 mEq/L (23-29); Chloride 107 mEq/L (98-107); Globulin 2.2 g/dL (2.4-3.5); Glucose 137 mg/dL (70-105); Osmolality,Calculated 283 (280-300); Potassium 4.2 mEq/L (3.5-5.1); Sodium 134 mEq/L (136-145); Total Protein 5.1 g/dL (6.4-8.9); eGFR For African Americans > 60 (> 60); eGFR For Non-African Americans > 60 (> 60)
[2021-02-20 07:46] LABS: Lymphocytes # 2.9 K/mcL (0.6-4.6); Monocytes # 0.7 K/mcL (0.0-1.3); Neutrophils # 4.5 K/mcL (1.6-8.9); Platelet Estimate Slight Decrease (Normal)
[2021-02-20 07:47] LABS: Anisocytosis 1+ (Not Present)
[2021-02-20] MEDS: Budesonide/Formoterol 160/4.5 1 PUFF INH IH SCH ×2 (07:47→20:52)
[2021-02-20] MEDS ORDERED: *HR* HYDROcodone/Acet 5/325 mg TABLET PO PRN (09:25)
[2021-02-20] MEDS: *HR* LORazepam 1 MG TABLET PO PRN (09:52)
[2021-02-20] MEDS: Folic Acid 1 MG TABLET PO SCH (09:53)
[2021-02-20] MEDS: Thiamine (B-1) 100 MG TABLET PO SCH (09:53)
[2021-02-20] MEDS: Nystatin POWDER 30 GM BOTTLE TP SCH ×3 (09:53→20:43)
[2021-02-20] MEDS: Pantoprazole 40 MG VIAL IVP SCH ×2 (09:53→20:43)
[2021-02-20] MEDS: cefTRIAXone 2,000 MG in 0.9 % Sodium Chloride Mini Bag 100 ML IVPB SCH (09:54)
[2021-02-20 17:13] LABS: Fluid Source for Triglycerides ASCITES FLUID
[2021-02-20 22:20] LABS: Fluid Source for Bilirubin ASCITES FLUID
[2021-02-20 22:32] LABS: Fluid Source for Albumin PERITONEAL FL
[2021-02-21] MEDS: Octreotide 400 MCG in 0.9 % Sodium Chloride 100 ML IVC SCH ×3 (02:35→16:17)
[2021-02-21 04:48] LABS: Basophils # 0.1 K/mcL (0.0-0.2); Basophils % 0.5 %; Eosinophils # 0.9 K/mcL (0.0-0.6); Eosinophils % 9.1 %; Hematocrit 25.9 % (37.5-50.1); Hemoglobin 8.1 g/dL (12.9-16.9); Immature Granulocytes % 0.2 % (0-4); Lymphocytes # 2.2 K/mcL (0.6-4.6); Lymphocytes % 22.2 %; Mean Corpuscular HGB Conc 31.3 g/dL (31.6-35.5); Mean Corpuscular Hemoglobin 30.9 pg (28.0-33.3); Mean Corpuscular Volume 98.9 fL (83.0-100.0); Mean Platelet Volume 10.6 fL (9.4-12.4); Monocytes # 0.7 K/mcL (0.0-1.3); Monocytes % 7.5 %; Neutrophils # 5.9 K/mcL (1.6-8.9); Platelet Count 105 K/mcL (140-400); Red Blood Count 2.62 M/mcL (4.19-5.50); Segmented Neutrophils % 60.5 %; White Blood Count 9.8 K/mcL (4.3-11.1)
[2021-02-21 04:56] LABS: INR 1.5; Prothrombin Time 16.7 Seconds (9.4-12.1)
[2021-02-21 04:57] LABS: Alanine Aminotransferase 13 Units/L (7-52); Albumin 3.1 g/dL (3.5-5.7); Albumin/Globulin Ratio 1.3 (1.1-2.2); Alkaline Phosphatase 155 Units/L (34-104); Aspartate Amino Transferase 51 Units/L (13-39); BUN/Creatinine Ratio 19 (6-26); Bilirubin,Total 2.6 mg/dL (0.3-1.0); Blood Urea Nitrogen 20 mg/dL (6-20); Calcium 8.2 mg/dL (8.6-10.3); Carbon Dioxide 19 mEq/L (23-29); Chloride 109 mEq/L (98-107); Globulin 2.4 g/dL (2.4-3.5); Glucose 105 mg/dL (70-105); Osmolality,Calculated 283 (280-300); Potassium 5.1 mEq/L (3.5-5.1); Sodium 135 mEq/L (136-145); Total Protein 5.5 g/dL (6.4-8.9); eGFR For African Americans > 60 (> 60); eGFR For Non-African Americans > 60 (> 60)
[2021-02-21 04:58] LABS: Activated Partial Thrombo Time 21.6 Seconds (26.0-36.0)
[2021-02-21] MEDS: Budesonide/Formoterol 160/4.5 1 PUFF INH IH SCH ×2 (07:31→20:35)
[2021-02-21] MEDS: Thiamine (B-1) 100 MG TABLET PO SCH (08:28)
[2021-02-21] MEDS: *HR* LORazepam 1 MG TABLET PO PRN ×2 (08:28)
[2021-02-21] MEDS: Pantoprazole 40 MG VIAL IVP SCH ×2 (08:28→19:57)
[2021-02-21] MEDS: Nystatin POWDER 30 GM BOTTLE TP SCH ×3 (08:28→20:01)
[2021-02-21] MEDS: Folic Acid 1 MG TABLET PO SCH (08:28)
[2021-02-21] MEDS: cefTRIAXone 2,000 MG in 0.9 % Sodium Chloride Mini Bag 100 ML IVPB SCH (08:29)
[2021-02-21] MEDS: *HR* OxyCODONE Immed Rel 5 MG TABLET PO PRN ×2 (08:32→19:58)
[2021-02-21 09:22] LABS: Triglycerides,Body Fluid 20 mg/dL
[2021-02-21] MEDS ORDERED: Lidocaine HCL 4 ML Topical Solution (Laryng-O-Jet Kit Sterile Pak) TP ONE (11:10)
[2021-02-21] MEDS ORDERED: Lidocaine/EPI 1:100k 1% 50 ML VIAL ONE (11:21)
[2021-02-21] MEDS ORDERED: Heparin 1,000 UNITS/500 mL 500 ML ONE (11:21)
[2021-02-21] MEDS ORDERED: *HR* FentaNYL (PF) 100 MCG/2 ML VIAL ONE (11:22)
[2021-02-21] MEDS ORDERED: 0.9 % Sodium Chloride 500 ML ONE (12:06)
[2021-02-21] MEDS ORDERED: *HR* Labetalol 20 MG/4 ML SYRINGE IVP ONE (12:20)
[2021-02-21] MEDS ORDERED: *HR* Rocuronium Bromide 50 MG/5 ML VIAL IVP ONE (12:20)
[2021-02-21] MEDS ORDERED: *HR* Propofol 200 MG/20 ML VIAL IVP ONE (12:20)
[2021-02-21] MEDS ORDERED: *HR* Succinylcholine 200 MG/10 ML VIAL IVP ONE (12:20)
[2021-02-21] MEDS ORDERED: Lidocaine -MPF 2% 5 ML VIAL SQ ONE (12:20)
[2021-02-21] MEDS: Lactulose Oral Soln 20 GM/30 ML UDC PO SCH (19:57)
[2021-02-22] MEDS: Octreotide 400 MCG in 0.9 % Sodium Chloride 100 ML IVC SCH ×2 (01:47→08:12)
[2021-02-22 05:01] LABS: Hemoglobin 7.1 g/dL (12.9-16.9)
[2021-02-22 05:02] LABS: Hematocrit 22.8 % (37.5-50.1); Immature Platelets 4.6 % (1.1-6.1); Mean Corpuscular HGB Conc 31.1 g/dL (31.6-35.5); Mean Corpuscular Hemoglobin 30.6 pg (28.0-33.3); Mean Corpuscular Volume 98.3 fL (83.0-100.0); Mean Platelet Volume 10.6 fL (9.4-12.4); Red Blood Count 2.32 M/mcL (4.19-5.50); White Blood Count 8.5 K/mcL (4.3-11.1)
[2021-02-22 05:14] LABS: INR 1.6; Prothrombin Time 18.1 Seconds (9.4-12.1)
[2021-02-22 05:20] LABS: BUN/Creatinine Ratio 18 (6-26); Blood Urea Nitrogen 22 mg/dL (6-20); Calcium 8.1 mg/dL (8.6-10.3); Carbon Dioxide 21 mEq/L (23-29); Chloride 108 mEq/L (98-107); Glucose 144 mg/dL (70-105); Osmolality,Calculated 286 (280-300); Sodium 135 mEq/L (136-145); eGFR For African Americans > 60 (> 60); eGFR For Non-African Americans > 60 (> 60)
[2021-02-22] MEDS: Folic Acid 1 MG TABLET PO SCH (07:31)
[2021-02-22] MEDS: Lactulose Oral Soln 20 GM/30 ML UDC PO SCH ×3 (07:31→19:55)
[2021-02-22] MEDS: Thiamine (B-1) 100 MG TABLET PO SCH (07:31)
[2021-02-22] MEDS: Pantoprazole 40 MG VIAL IVP SCH (07:32)
[2021-02-22] MEDS: cefTRIAXone 2,000 MG in 0.9 % Sodium Chloride Mini Bag 100 ML IVPB SCH (07:32)
[2021-02-22] MEDS: Nystatin POWDER 30 GM BOTTLE TP SCH ×3 (07:33→19:55)
[2021-02-22] MEDS: Budesonide/Formoterol 160/4.5 1 PUFF INH IH SCH ×2 (11:18→20:38)
[2021-02-22] MEDS: *HR* LORazepam 1 MG TABLET PO PRN ×2 (11:26→20:03)
[2021-02-22 13:12] LABS: Hemoglobin 7.8 g/dL (12.9-16.9)
[2021-02-22 13:14] LABS: Hematocrit 24.8 % (37.5-50.1)
[2021-02-23 04:04] LABS: Hematocrit 22.4 % (37.5-50.1)
[2021-02-23 04:06] LABS: Hemoglobin 7.1 g/dL (12.9-16.9); Immature Platelets 5.4 % (1.1-6.1); Mean Corpuscular HGB Conc 31.7 g/dL (31.6-35.5); Mean Corpuscular Hemoglobin 31.1 pg (28.0-33.3); Mean Corpuscular Volume 98.2 fL (83.0-100.0); Mean Platelet Volume 10.8 fL (9.4-12.4); Red Blood Count 2.28 M/mcL (4.19-5.50); Red Cell Distribution Width 18.1 % (11.5-14.5); White Blood Count 15.5 K/mcL (4.3-11.1)
[2021-02-23 04:19] LABS: BUN/Creatinine Ratio 21 (6-26); Blood Urea Nitrogen 21 mg/dL (6-20); Calcium 8.4 mg/dL (8.6-10.3); Carbon Dioxide 21 mEq/L (23-29); Chloride 107 mEq/L (98-107); Glucose 127 mg/dL (70-105); Osmolality,Calculated 279 (280-300); Sodium 132 mEq/L (136-145); eGFR For African Americans > 60 (> 60); eGFR For Non-African Americans > 60 (> 60)
[2021-02-23 04:20] LABS: INR 1.6; Prothrombin Time 17.5 Seconds (9.4-12.1)
[2021-02-23] MEDS ORDERED: Isovue-370 500 ML BOTTLE IVP ONE (09:11)
[2021-02-23] MEDS: Thiamine (B-1) 100 MG TABLET PO SCH (09:18)
[2021-02-23] MEDS: Nystatin POWDER 30 GM BOTTLE TP SCH ×3 (09:18→23:11)
[2021-02-23] MEDS: Lactulose Oral Soln 20 GM/30 ML UDC PO SCH ×3 (09:18→21:33)
[2021-02-23] MEDS: Furosemide 40 MG TABLET PO SCH (09:18)
[2021-02-23] MEDS: Folic Acid 1 MG TABLET PO SCH (09:18)
[2021-02-23] MEDS: Budesonide/Formoterol 160/4.5 1 PUFF INH IH SCH ×2 (11:30→20:05)
[2021-02-23 13:12] LABS: Hematocrit 25.1 % (37.5-50.1); Hemoglobin 7.7 g/dL (12.9-16.9)
[2021-02-23] MEDS ORDERED: Albumin 25% 12.5gm/50mL 12.5 GM/50 ML IV.SOLN IVPB ONE (16:15)
[2021-02-23] MEDS: *HR* LORazepam 1 MG TABLET PO PRN (16:42)
[2021-02-23 17:17] LABS: % Iron Saturation 15 % (20-55); Iron 22 mcg/dL (65-175); Transferrin 106 mg/dL (203-362)
[2021-02-23 17:34] LABS: Ferritin 116 ng/mL (20-250)
[2021-02-23 17:42] LABS: Folate > 22.3 ng/mL (3.0-16.0); Vitamin B12 1420 pg/mL (250-1100)
[2021-02-23] MEDS: *HR* OxyCODONE Immed Rel 5 MG TABLET PO PRN (21:32)
[2021-02-24] MEDS: Furosemide 40 MG TABLET PO SCH (07:43)
[2021-02-24] MEDS: Folic Acid 1 MG TABLET PO SCH (07:43)
[2021-02-24] MEDS: Nystatin POWDER 30 GM BOTTLE TP SCH ×3 (07:43→20:27)
[2021-02-24] MEDS: Thiamine (B-1) 100 MG TABLET PO SCH (07:43)
[2021-02-24] MEDS: Lactulose Oral Soln 20 GM/30 ML UDC PO SCH ×2 (07:43→20:27)
[2021-02-24 10:11] LABS: Platelet Count 165 K/mcL (140-400)
[2021-02-24 10:12] LABS: Hematocrit 18.6 % (37.5-50.1); Mean Corpuscular HGB Conc 31.2 g/dL (31.6-35.5); Mean Corpuscular Hemoglobin 31.2 pg (28.0-33.3); Mean Platelet Volume 10.6 fL (9.4-12.4); Red Blood Count 1.86 M/mcL (4.19-5.50); Red Cell Distribution Width 18.3 % (11.5-14.5); White Blood Count 15.2 K/mcL (4.3-11.1)
[2021-02-24 10:25] LABS: INR 1.5; Prothrombin Time 16.7 Seconds (9.4-12.1)
[2021-02-24 10:34] LABS: Albumin/Globulin Ratio 1.3 (1.1-2.2); Bilirubin,Direct 1.4 mg/dL (0.0-0.2); Bilirubin,Indirect 1.6 mg/dL (0.0-1.0); Calcium 8.6 mg/dL (8.6-10.3); Globulin 2.4 g/dL (2.4-3.5); Potassium 4.8 mEq/L (3.5-5.1); Total Protein 5.4 g/dL (6.4-8.9)
[2021-02-24] MEDS: Budesonide/Formoterol 160/4.5 1 PUFF INH IH SCH ×2 (10:40→20:56)
[2021-02-24 10:48] LABS: Hemoglobin 5.8 g/dL (12.9-16.9)
[2021-02-24] MEDS ORDERED: Albumin 25% 25gram/100mL 25 GM/100 ML IV.SOLN IVPB ONE (10:52)
[2021-02-24] MEDS ORDERED: Albumin 25% 12.5gm/50mL 12.5 GM/50 ML IV.SOLN IVPB ONE (10:54)
[2021-02-24] MEDS: *HR* LORazepam 1 MG TABLET PO PRN (13:12)
[2021-02-24] MEDS ORDERED: 0.9 % Sodium Chloride 250 ML ONE (13:14)
[2021-02-24 20:51] LABS: Basophils % 0.2 %; Eosinophils # 0.1 K/mcL (0.0-0.6); Eosinophils % 0.7 %; Hematocrit 20.4 % (37.5-50.1); Hemoglobin 6.5 g/dL (12.9-16.9); Immature Granulocytes % 2.3 % (0-4); Lymphocytes # 1.9 K/mcL (0.6-4.6); Lymphocytes % 13.7 %; Mean Corpuscular HGB Conc 31.9 g/dL (31.6-35.5); Mean Corpuscular Volume 97.1 fL (83.0-100.0); Mean Platelet Volume 10.1 fL (9.4-12.4); Monocytes # 2.3 K/mcL (0.0-1.3); Monocytes % 16.5 %; Neutrophils # 9.4 K/mcL (1.6-8.9); Nucleated Red Blood Cells 1.5 /100 WBC (0); Platelet Count 152 K/mcL (140-400); Red Cell Distribution Width 17.5 % (11.5-14.5); Segmented Neutrophils % 66.6 %; White Blood Count 14.1 K/mcL (4.3-11.1)
[2021-02-25] MEDS ORDERED: 0.9 % Sodium Chloride 250 ML ONE (00:04)
[2021-02-25] MEDS ORDERED: Acetaminophen 325 MG TABLET PO ONE (00:29)
[2021-02-25] MEDS ORDERED: Acetaminophen IV 1,000 MG/100 ML BAG IVPB ONE (00:34)
[2021-02-25] MEDS: Budesonide/Formoterol 160/4.5 1 PUFF INH IH SCH (07:36)
[2021-02-25] MEDS: Nystatin POWDER 30 GM BOTTLE TP SCH ×2 (07:39→14:33)
[2021-02-25] MEDS: Furosemide 40 MG TABLET PO SCH (07:46)
[2021-02-25] MEDS: Folic Acid 1 MG TABLET PO SCH (07:46)
[2021-02-25] MEDS: Lactulose Oral Soln 20 GM/30 ML UDC PO SCH (07:46)
[2021-02-25] MEDS: Thiamine (B-1) 100 MG TABLET PO SCH (07:48)
[2021-02-25 09:12] LABS: Eosinophils % 0.7 %; Hematocrit 22.8 % (37.5-50.1); Hemoglobin 7.3 g/dL (12.9-16.9); Mean Corpuscular Hemoglobin 30.5 pg (28.0-33.3); Mean Corpuscular Volume 95.4 fL (83.0-100.0); Monocytes % 13.2 %; Nucleated Red Blood Cells 0.6 /100 WBC (0); Red Blood Count 2.39 M/mcL (4.19-5.50)
[2021-02-25 09:13] LABS: Basophils % 0.2 %; Eosinophils # 0.1 K/mcL (0.0-0.6); Immature Granulocytes % 1.7 % (0-4); Immature Platelets 4.7 % (1.1-6.1); Lymphocytes # 1.6 K/mcL (0.6-4.6); Lymphocytes % 11.7 %; Mean Platelet Volume 10.2 fL (9.4-12.4); Monocytes # 1.8 K/mcL (0.0-1.3); Neutrophils # 9.9 K/mcL (1.6-8.9); Platelet Count 129 K/mcL (140-400); Segmented Neutrophils % 72.5 %; White Blood Count 13.6 K/mcL (4.3-11.1)
[2021-02-25 09:32] LABS: Calcium 8.8 mg/dL (8.6-10.3); Potassium 5.3 mEq/L (3.5-5.1)
[2021-02-25 09:39] LABS: Troponin I 0.05 ng/mL (< 0.04)
[2021-02-25 09:57] LABS: Magnesium 1.8 mg/dL (1.6-2.6); Phosphorous 4.2 mg/dL (2.7-4.5)
[2021-02-25 10:37] LABS: INR 1.6
[2021-02-25] MEDS ORDERED: 0.9 % Sodium Chloride 1,000 ML IVC SCH (10:45)
[2021-02-25] MEDS: Albumin 25% 25gram/100mL 25 GM/100 ML IV.SOLN IVC SCH ×4 (11:20→15:56)
[2021-02-25 12:19] LABS: Hematocrit 20.7 % (37.5-50.1)
[2021-02-25] MEDS ORDERED: Isovue-370 500 ML BOTTLE IVP ONE (18:15)
[2021-02-25 18:36] LABS: Bilirubin,Urine Negative (Negative); Blood,Urine Small (Negative); Budding Yeast,Urine Few per hpf (None Seen); Clarity,Urine Turbid (Clear); Color,Urine Yellow (Yellow); Glucose,Urine (UA) Normal (Normal); Hyaline Casts,Urine Moderate per lpf (None Seen); Ketones,Urine Negative (Negative); Leukocyte Esterase,Urine Large (Negative); Mucus,Urine Few per lpf (None-Few); Nitrite,Urine Negative (Negative); PH,Urine 5.5 pH Units (5.0-8.0); Protein,Urine Trace mg/dL (Neg-Trace); RBC,Urine 15-30 per hpf (0-3); Urobilinogen,Urine Normal (Normal); WBC,Urine TNTC per hpf (0-3)
[2021-02-25] MEDS ORDERED: *HR* LORazepam 1 MG TABLET PO PRN (18:43)
[2021-02-25] MEDS: Morphine Sulfate 2 MG/ML SYRINGE IVP PRN ×2 (20:43→22:55)
[2021-02-26] MEDS: Morphine Sulfate 2 MG/ML SYRINGE IVP PRN ×6 (00:16→08:16)
[2021-02-26] MEDS ORDERED: *HR* FentaNYL (PF) 100 MCG/2 ML VIAL IVP PRN (10:44)
[2021-02-26] MEDS ORDERED: Acetaminophen 325 MG TABLET PO PRN (10:52)
[2021-02-26] MEDS: *HR* LORazepam Oral Conc 2 MG/ML SL PRN ×3 (14:03→22:18)
[2021-02-26] MEDS: Haloperidol Lactate 5 MG/ML VIAL IVP PRN (19:02)
[2021-02-27] MEDS: *HR* LORazepam Oral Conc 2 MG/ML SL PRN ×3 (01:06→07:35)
[2021-02-27] MEDS: Haloperidol Lactate 5 MG/ML VIAL IVP PRN (07:35)
[2021-02-27] MEDS ORDERED: Haloperidol Lactate 5 MG/ML VIAL IVP PRN (08:24)
[2021-02-27] MEDS ORDERED: *HR* FentaNYL (PF) 100 MCG/2 ML VIAL IVP PRN (08:24)
[2021-02-27] MEDS: *HR* LORazepam 2 MG/ML VIAL IVP PRN ×5 (11:28→23:42)
[2021-02-27] MEDS: Atropine Sulfate 1% 40 DROP/2 ML BOTTLE SL PRN ×2 (15:19→21:27)
[2021-02-28] MEDS: *HR* LORazepam 2 MG/ML VIAL IVP PRN ×7 (02:49→20:44)
[2021-02-28] MEDS: Acetaminophen 650 MG RECTAL SUPP RC PRN ×2 (02:57→09:18)
[2021-02-28 08:13] VITALS: BP 123/71; PULSE 117; O2SAT 85
[2021-02-28] MEDS: Atropine Sulfate 1% 40 DROP/2 ML BOTTLE SL PRN ×2 (09:32→20:45)
[2021-02-28] MEDS ORDERED: Scopolamine Patch 1.5 MG PATCH.TD72 TD SCH (10:30)
[2021-02-28] MEDS: Ketorolac 30 MG/ML VIAL IVP PRN (18:35)
[2021-03-01] MEDS: Atropine Sulfate 1% 40 DROP/2 ML BOTTLE SL PRN (00:36)
[2021-03-01] MEDS: *HR* LORazepam 2 MG/ML VIAL IVP PRN ×7 (00:37→16:51)
[2021-03-01] MEDS: Ketorolac 30 MG/ML VIAL IVP PRN ×2 (00:37→10:16)
[2021-03-01] MEDS ORDERED: Glycopyrrolate 0.2 MG/ML VIAL IVP PRN (09:15)
[2021-03-01 10:10] VITALS: TEMP 99.8
== END 2021-03-01 19:44 | disposition expired | DRG 405 ==
LOC: 2NNU 20:45 → EMEROOARM 20:45 → OBSVTOIN 02-16 00:16 → SUATTDRO 02-16 00:16 → 2NNU 02-16 03:34 → 3ANU 02-20 23:22 → ICNU 02-21 14:20 → 2NNU 02-21 15:03 → 2ANU 02-23 11:35
PROVIDERS: ADMIT Student in an Organized Health Care Education/Training Program; ATTEND Internal Medicine